=== PATIENT | female | born 1970 | race Caucasian/White ===

== ENCOUNTER 2017-09-25 23:14 | Inpatient (IN) | payer OTHER ==
[~2017-09-25] VITALS: Ht 152.4 cm; Wt 84.1 kg
[2017-09-25] MEDS ORDERED: MORPHINE SULFATE 2 MG/ML SYR IV STA (23:54)
[2017-09-26] VITALS (7 sets, daily range): BP systolic 93–120; BP diastolic 59–79
[2017-09-26] MEDS ORDERED: ONDANSETRON HCL 4 MG ORAL DISINTEGRATING TAB PO ONE
[2017-09-26] MEDS ORDERED: SODIUM CHLORIDE 0.9% 1000ML 1,000 ML IV SCH
[2017-09-26] MEDS ORDERED: SODIUM CHLORIDE 0.9% 1000ML 1,000 ML IV ONE
[2017-09-26] MEDS ORDERED: SODIUM CHLORIDE 0.9% 1000ML 1,000 ML ONE
[2017-09-26 00:13] LABS: BASOPHILS # (AUTO) 0.1 (0.0-0.1); BASOPHILS % 0.3 % (0.0-1.0); HEMATOCRIT 43.3 % (34.2-44.1); HEMOGLOBIN 14.3 g/dL (12.0-16.0); LYMPHOCYTES # (AUTO) 1.7 (1.0-3.2); LYMPHOCYTES % 7.3 % (18.0-39.1); MONOCYTES # (AUTO) 1.7 (0.2-0.8); MONOCYTES % 7.5 % (4.4-11.3); NEUTROPHILS # (AUTO) 19.2 (2.1-6.9); NEUTROPHILS % 84.3 % (38.7-80.0); PLATELET COUNT 278 x10e3/uL (140-360); RED BLOOD COUNT 4.76 x10e6/uL (3.6-5.1); RED CELL DISTRIBUTION WIDTH 13.2 % (11.7-14.4)
[2017-09-26 00:17] LABS: CLARITY,URINE CLEAR (CLEAR); COLOR,URINE YELLOW (YELLOW)
[2017-09-26 00:18] LABS: BILIRUBIN,URINE NEGATIVE (NEGATIVE); KETONES,URINE NEGATIVE (NEGATIVE); LEUKOCYTE ESTERASE ,URINE NEGATIVE (NEGATIVE); NITRITE,URINE NEGATIVE (NEGATIVE); PROTEIN,URINE DIPSTICK NEGATIVE (NEGATIVE); URINE UROBILINOGEN 0.2 mg/dL (0.2 - 1)
[2017-09-26 00:28] LABS: ALANINE AMINOTRANSFERASE 11 IU/L (0-55); ALBUMIN 3.6 g/dL (3.5-5.0); ALKALINE PHOSPHATASE 82 IU/L (40-150); AMYLASE 20 U/L (25-125); ANION GAP 13.5 mmol/L (8-16); BLOOD UREA NITROGEN 9 mg/dL (7-26); BUN/CREATININE RATIO 12 (6-25); CALCIUM 9.4 mg/dL (8.4-10.2); CARBON DIOXIDE 24 mmol/L (22-29); CHLORIDE 102 mmol/L (98-107); CREATINE KINASE 80 IU/L (29-168); CREATININE, SERUM 0.76 mg/dL (0.57-1.11); EST GLOMERULAR FILTRATION RATE > 60 ML/MIN (60-); GLUCOSE 156 mg/dL (74-118); LIPASE 18 U/L (8-78); POTASSIUM 4.5 mmol/L (3.5-5.1); SODIUM 135 mmol/L (136-145)
[2017-09-26 00:29] LABS: BACTERIA,URINE RARE /HPF; EPITHELIAL CELLS,URINE RARE /LPF; RBC,URINE 21-50 /HPF (0-5); WBC,URINE (MAN) 0-5 /HPF (0-5)
[2017-09-26] MEDS ORDERED: DIATRIZOATE MEGL/DIATRIZOA SOD 30 ML BTL PO ONE (00:29)
[2017-09-26] MEDS: LEVOFLOXACIN 500MG/D5W 100ML IV SCH (01:00)
[2017-09-26 01:12] LABS: LYMPHOCYTES % (MANUAL) 9 % (19-48); MONOCYTES % (MANUAL) 6 % (3.4-9.0); NEUTROPHILS % (MANUAL) 85 % (40-74); PLATELET ESTIMATE ADEQUATE; PLATELET MORPHOLOGY COMMENT NORMAL; RBC MORPHOLOGY COMMENT NORMAL
[2017-09-26] MEDS ORDERED: IOPAMIDOL 370 MG/ML 200 ML INFUS..BTL INJ ONE (01:55)
[2017-09-26] MEDS ORDERED: SODIUM CHLORIDE 0.9% 50ML 50 ML ONE (01:55)
--- NOTE | 2017-09-26 02:50 | Diagnostic Imaging Report ---
EXAM: CT Abdomen and Pelvis WITH contrast INDICATION: Left lower quadrant pain, vomiting COMPARISON: None. TECHNIQUE: Abdomen and pelvis were scanned utilizing a multidetector helical scanner from the lung base to the pubic symphysis after administration of IV contrast. Coronal and sagittal reformations were obtained. Routine protocol was performed. Scan was performed when during portal venous phase. IV CONTRAST: 100 mL of Isovue-370 ORAL CONTRAST: Gastrografin RADIATION DOSE: Total DLP: 550.24 mGy*cm Estimated effective dose: (DLP x 0.015 x size factor) mSv COMPLICATIONS: None FINDINGS: LINES and TUBES: None. LOWER THORAX: Unremarkable HEPATOBILIARY: No focal hepatic lesions. No biliary ductal dilation. GALLBLADDER: No radio-opaque stones or sludge. No wall thickening. SPLEEN: No splenomegaly. PANCREAS: No focal masses or ductal dilatation. ADRENALS: No adrenal nodules KIDNEYS/URETERS: Kidneys enhance symmetrically. No hydronephrosis. No cystic or solid mass lesions. No stones. GI TRACT: No abnormal distention, wall thickening, or evidence of bowel obstruction. There are diverticula within the colon with evidence of distal sigmoid colon diverticulitis. Partial appendectomy. There is evidence of prior segmental colectomy at the distal descending and sigmoid colon. PELVIC ORGANS/BLADDER: Within the left hemipelvis, there are 2 well-circumscribed fluid collections in the region of the left adnexum measuring 6.5 and 6.9 cm in maximum dimension abutting each other and abutting the sigmoid colon LYMPH NODES: No lymphadenopathy. VESSELS: Unremarkable. PERITONEUM / RETROPERITONEUM: No free air or fluid. BONES: Unremarkable. SOFT TISSUES: Left anterior lateral small bowel containing Spigelian hernia versus eventration on prior colostomy site IMPRESSION: 1. Findings in the left lower quadrant are suspicious for inflammatory changes related to contained perforated diverticulitis. No evidence of free air or free fluid. However, there is evidence of air and fluid containing in the left hemipelvis 2. 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 Randal Ohara M.D. on 09/26/2017 2:46 AM
[2017-09-26] MEDS ORDERED: METRONIDAZOLE 500MG/NS 100ML 100 ML IV STA (02:55)
[2017-09-26] MEDS ORDERED: LEVOFLOXACIN 500MG/D5W 100ML 100 ML IV STA (02:55)
[2017-09-26] MEDS ORDERED: MORPHINE SULFATE 2 MG/ML SYR IV STA (03:00)
[2017-09-26] MEDS ORDERED: LEVOFLOXACIN 500MG/D5W 100ML IV SCH (03:15)
[2017-09-26] MEDS ORDERED: ACETAMINOPHEN 1000 MG/100 ML IV PRN (03:15)
[2017-09-26] MEDS ORDERED: ONDANSETRON HCL INJ 2 MG/ML VIAL IV PRN (03:15)
[2017-09-26] MEDS: SODIUM CHLORIDE 0.9% 1000ML 1,000 ML IV SCH ×3 (03:24→20:00)
--- OUTSIDE RECORDS SUMMARY | 2017-09-26 03:32 | XMS REPORT ---
Author Author [facility] Address Unknown Phone Unavailable Care Team Providers Care Associate Theatre Professor Name Role Phone BAIRON LAWTON Unavailable Unavailable Problems This patient has no known problems. Allergies, Adverse Reactions, Alerts This patient has no known allergies or adverse reactions. Medications This patient has no known medications. Results Test Description Test Time Test Comments Text Results Atomic Results Result Comments CT ABDOMEN/PELVIS W [place] [address] Patient Name: JORDAN OLSEN MR #: [id number] : 1970 Age/Sex: 47/F Req #: [id number] Adm Physician: Ordered by: BAIRON LAWTON MD Report #: [id number] Location: ER Room/Bed: Procedure: [id number] CT/CT ABDOMEN/PELVIS W Exam Date: 09/26/17 Exam Time: 222 REPORT STATUS: Signed EXAM: CT Abdomen and Pelvis WITH contrast INDICATION: Left lower quadrant pain, vomiting COMPARISON: None. TECHNIQUE: Abdomen and pelvis were scanned utilizing a multidetector helical scanner from the lung base to the pubic symphysis after administration of IV contrast. Coronal and sagittal reformations were obtained. Routine protocol was performed. Scan was performed when during portal venous phase. IV CONTRAST: 100 mL of Isovue-370 ORAL CONTRAST: Gastrografin RADIATION DOSE: Total DLP: 550.24 mGy*cm Estimated effective dose: (DLP x 0.015 x size factor) mSv COMPLICATIONS: None FINDINGS: LINES and TUBES: None. LOWER THORAX: Unremarkable HEPATOBILIARY: No focal hepatic lesions. No biliary ductal dilation. GALLBLADDER: No radio-opaque stones or sludge. No wall thickening. SPLEEN: No splenomegaly. PANCREAS: No focal masses or ductal dilatation. ADRENALS: No adrenal nodules KIDNEYS/URETERS: Kidneys enhance symmetrically. No hydronephrosis. No cystic or solid mass lesions. No stones. GI TRACT: No abnormal distention, wall thickening, or evidence of bowel obstruction. There are diverticula within the colon with evidence of distal sigmoid colon diverticulitis. Partial appendectomy. There is evidence of prior segmental colectomy at the distal descending and sigmoid colon. PELVIC ORGANS/BLADDER : Within the left hemipelvis, there are 2 well-circumscribed fluid collections in the region of the left adnexum measuring 6.5 and 6.9 cm in maximum dimension abutting each other and abutting the sigmoid colon LYMPH NODES: No lymphadenopathy. VESSELS: Unremarkable. PERITONEUM / RETROPERITONEUM: No free air or fluid. BONES: Unremarkable. SOFT TISSUES: Left anterior lateral small bowel containing Spigelian hernia versus eventration on prior colostomy site IMPRESSION: 1. Findings in the left lower quadrant are suspicious for inflammatory changes related to contained perforated diverticulitis. No evidence of free air or free fluid. However, there is evidence of air and fluid containing in the left hemipelvis 2. 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 Randal Ohara M.D. on 09/26/2017 2:46 AM Dictated By: RANDAL VALE MD 5 Transcribed By: BRANDIN on 09/26/17245 COPY TO: BAIRON LAWTON MD
[2017-09-26] MEDS ORDERED: METRONIDAZOLE 500MG/NS 100ML 100 ML IV SCH (06:00)
[2017-09-26] MEDS: MORPHINE SULFATE 2 MG/ML SYR IV PRN ×2 (06:27→10:01)
[2017-09-26] MEDS: ONDANSETRON HCL 4 MG ORAL DISINTEGRATING TAB SL PRN ×2 (06:46→13:45)
[2017-09-26] MEDS: FAMOTIDINE 20 MG/2 ML VIAL IV SCH ×2 (09:00→17:37)
[2017-09-26] MEDS: METRONIDAZOLE 500MG/NS 100ML 100 ML IV SCH ×3 (09:00→21:00)
[2017-09-26] MEDS: HYDROMORPHONE 2MG/ML INJ IV PRN (13:43)
[2017-09-27] VITALS (7 sets, daily range): BP systolic 103–120; BP diastolic 57–84
[2017-09-27] MEDS: METRONIDAZOLE 500MG/NS 100ML 100 ML IV SCH ×4 (03:32→21:02)
[2017-09-27] MEDS: SODIUM CHLORIDE 0.9% 1000ML 1,000 ML IV SCH ×3 (03:37→18:35)
[2017-09-27 06:45] LABS: BASOPHILS # (AUTO) 0.1 (0.0-0.1); BASOPHILS % 0.2 % (0.0-1.0); EOSINOPHILS % 0.1 % (0.0-6.0); HEMATOCRIT 37.9 % (34.2-44.1); HEMOGLOBIN 12.1 g/dL (12.0-16.0); LYMPHOCYTES # (AUTO) 0.9 (1.0-3.2); LYMPHOCYTES % 3.8 % (18.0-39.1); MEAN CORPUSCULAR HEMOGLOBIN 30.3 pg (28-32); MEAN CORPUSCULAR HGB CONC 31.9 g/dL (31-35); MONOCYTES # (AUTO) 1.8 (0.2-0.8); NEUTROPHILS # (AUTO) 19.7 (2.1-6.9); NEUTROPHILS % 86.8 % (38.7-80.0); PLATELET COUNT 214 x10e3/uL (140-360); RED BLOOD COUNT 3.99 x10e6/uL (3.6-5.1); RED CELL DISTRIBUTION WIDTH 13.6 % (11.7-14.4)
[2017-09-27 07:13] LABS: ALANINE AMINOTRANSFERASE 7 IU/L (0-55); ALBUMIN 2.6 g/dL (3.5-5.0); ALBUMIN/GLOBULIN RATIO 0.8 (0.8-2.0); ALKALINE PHOSPHATASE 68 IU/L (40-150); BLOOD UREA NITROGEN 8 mg/dL (7-26); BUN/CREATININE RATIO 12 (6-25); CALCIUM 8.8 mg/dL (8.4-10.2); CARBON DIOXIDE 25 mmol/L (22-29); CHLORIDE 107 mmol/L (98-107); CREATININE, SERUM 0.68 mg/dL (0.57-1.11); EST GLOMERULAR FILTRATION RATE > 60 ML/MIN (60-); GLUCOSE 107 mg/dL (74-118); SODIUM 139 mmol/L (136-145)
[2017-09-27] MEDS: ONDANSETRON HCL 4 MG ORAL DISINTEGRATING TAB SL PRN (07:52)
[2017-09-27 07:55] LABS: BAND NEUTROPHILS % (MANUAL) 1 %; EOSINOPHILS % (MANUAL) 1 % (0-7); LYMPHOCYTES % (MANUAL) 3 % (19-48); MONOCYTES % (MANUAL) 7 % (3.4-9.0); NEUTROPHILS % (MANUAL) 88 % (40-74)
[2017-09-27 07:56] LABS: ANISOCYTOSIS SLIGHT; PLATELET ESTIMATE ADEQUATE; PLATELET MORPHOLOGY COMMENT NORMAL; RBC MORPHOLOGY COMMENT NORMAL
[2017-09-27] MEDS: FAMOTIDINE 20 MG/2 ML VIAL IV SCH ×2 (09:00→15:18)
[2017-09-27] MEDS: HYDROMORPHONE 2MG/ML INJ IV PRN ×2 (10:04→19:47)
[2017-09-27] MEDS ORDERED: ONDANSETRON HCL INJ 2 MG/ML VIAL IV PRN (15:00)
[2017-09-27] MEDS: PANTOPRAZOLE 40 MG 10ML VIAL IV SCH (17:06)
[2017-09-27] MEDS: LEVOFLOXACIN 500MG/D5W 100ML IV SCH (23:29)
[2017-09-28] VITALS (7 sets, daily range): BP systolic 104–134; BP diastolic 61–87
[2017-09-28] MEDS: PROMETHAZINE 25MG/ NS 50ML (IV) IV PRN ×3 (00:46→22:48)
[2017-09-28] MEDS: HYDROMORPHONE 2MG/ML INJ IV PRN ×3 (00:46→22:48)
[2017-09-28] MEDS: SODIUM CHLORIDE 0.9% 1000ML 1,000 ML IV SCH ×4 (03:03→20:39)
[2017-09-28] MEDS: METRONIDAZOLE 500MG/NS 100ML 100 ML IV SCH ×4 (03:03→20:39)
[2017-09-28] MEDS: PANTOPRAZOLE 40 MG 10ML VIAL IV SCH ×2 (11:02→18:00)
[2017-09-28] MEDS: ACETAMINOPHEN 325 MG TAB PO PRN (16:17)
[2017-09-29] VITALS (7 sets, daily range): BP systolic 115–122; BP diastolic 69–81
[2017-09-29] MEDS: LEVOFLOXACIN 500MG/D5W 100ML IV SCH (00:39)
[2017-09-29] MEDS: METRONIDAZOLE 500MG/NS 100ML 100 ML IV SCH ×4 (02:32→20:44)
[2017-09-29] MEDS: ONDANSETRON HCL 4 MG ORAL DISINTEGRATING TAB PO PRN ×2 (06:12→16:33)
--- NOTE | 2017-09-29 07:07 | Diagnostic Imaging Report ---
EXAMINATION: ABDOMEN ACUTE SERIES W/PA CXR INDICATION: Diverticulitis COMPARISON: CT of the abdomen and pelvis on 09/26/2017 FINDINGS: TUBES and LINES: None. LUNGS: Lungs are well inflated. Lungs are clear. There is no evidence of pneumonia or pulmonary edema. PLEURA: No pleural effusion or pneumothorax. HEART AND MEDIASTINUM: The cardiomediastinal silhouette is unremarkable. BONES AND SOFT TISSUES: No acute osseous lesion. Soft tissues are unremarkable. ABDOMEN: No free air under the diaphragm. Nonobstructive bowel gas pattern. No abnormal abdominal calcifications, mass effect or organomegaly. IMPRESSION: No acute thoracic abnormality. Nonobstructive bowel gas pattern. Signed by: Dr. Randal Ohara M.D. on 09/29/2017 7:03 AM
[2017-09-29 07:32] LABS: BASOPHILS # (AUTO) 0.1 (0.0-0.1); BASOPHILS % 0.2 % (0.0-1.0); EOSINOPHILS % 0.1 % (0.0-6.0); HEMATOCRIT 39.3 % (34.2-44.1); HEMOGLOBIN 12.9 g/dL (12.0-16.0); LYMPHOCYTES # (AUTO) 1.4 (1.0-3.2); LYMPHOCYTES % 6.6 % (18.0-39.1); MEAN CORPUSCULAR HEMOGLOBIN 30.4 pg (28-32); MEAN CORPUSCULAR HGB CONC 32.8 g/dL (31-35); MEAN CORPUSCULAR VOLUME 92.7 fL (81-99); MONOCYTES # (AUTO) 1.8 (0.2-0.8); MONOCYTES % 8.9 % (4.4-11.3); PLATELET COUNT 272 x10e3/uL (140-360); RED BLOOD COUNT 4.24 x10e6/uL (3.6-5.1); RED CELL DISTRIBUTION WIDTH 13.4 % (11.7-14.4)
[2017-09-29] MEDS: PROMETHAZINE 25MG/ NS 50ML (IV) IV PRN ×2 (07:48→17:43)
[2017-09-29] MEDS: HYDROMORPHONE 2MG/ML INJ IV PRN ×2 (07:48→17:41)
[2017-09-29 08:04] LABS: ANION GAP 16.1 mmol/L (8-16); BLOOD UREA NITROGEN 10 mg/dL (7-26); BUN/CREATININE RATIO 16 (6-25); CALCIUM 8.7 mg/dL (8.4-10.2); CARBON DIOXIDE 20 mmol/L (22-29); CHLORIDE 105 mmol/L (98-107); CREATININE, SERUM 0.61 mg/dL (0.57-1.11); EST GLOMERULAR FILTRATION RATE > 60 ML/MIN (60-); GLUCOSE 72 mg/dL (74-118); POTASSIUM 3.1 mmol/L (3.5-5.1); SODIUM 138 mmol/L (136-145)
[2017-09-29] MEDS: SODIUM CHLORIDE 0.9% 1000ML 1,000 ML IV SCH ×2 (09:48→11:20)
[2017-09-29] MEDS: PANTOPRAZOLE 40 MG 10ML VIAL IV SCH ×2 (09:56→17:41)
[2017-09-29 10:16] LABS: BAND NEUTROPHILS % (MANUAL) 1 %; LYMPHOCYTES % (MANUAL) 5 % (19-48); MONOCYTES % (MANUAL) 10 % (3.4-9.0); NEUTROPHILS % (MANUAL) 84 % (40-74)
[2017-09-29 10:17] LABS: PLATELET ESTIMATE ADEQUATE; PLATELET MORPHOLOGY COMMENT NORMAL; RBC MORPHOLOGY COMMENT NORMAL
[2017-09-29] MEDS ORDERED: POTASSIUM CHLORIDE 20MEQ/100ML 100 ML IV STA (11:20)
[2017-09-29] MEDS: ACETAMINOPHEN 325 MG TAB PO PRN (16:33)
[2017-09-30] MEDS: LEVOFLOXACIN 500MG/D5W 100ML IV SCH ×2 (00:11→23:10)
[2017-09-30 00:58] VITALS: BP 118/63
[2017-09-30] MEDS: ONDANSETRON HCL 4 MG ORAL DISINTEGRATING TAB PO PRN (02:18)
[2017-09-30] MEDS: ACETAMINOPHEN 325 MG TAB PO PRN ×2 (02:40→09:30)
[2017-09-30] MEDS: METRONIDAZOLE 500MG/NS 100ML 100 ML IV SCH ×4 (03:34→21:12)
[2017-09-30 05:37] VITALS: BP 113/67
[2017-09-30 06:46] LABS: BASOPHILS # (AUTO) 0.1 (0.0-0.1); BASOPHILS % 0.3 % (0.0-1.0); EOSINOPHILS % 0.2 % (0.0-6.0); HEMATOCRIT 38.6 % (34.2-44.1); HEMOGLOBIN 12.7 g/dL (12.0-16.0); LYMPHOCYTES # (AUTO) 1.5 (1.0-3.2); LYMPHOCYTES % 8.7 % (18.0-39.1); MEAN CORPUSCULAR HEMOGLOBIN 30.2 pg (28-32); MEAN CORPUSCULAR HGB CONC 32.9 g/dL (31-35); MEAN CORPUSCULAR VOLUME 91.9 fL (81-99); MONOCYTES # (AUTO) 1.5 (0.2-0.8); MONOCYTES % 8.8 % (4.4-11.3); NEUTROPHILS # (AUTO) 14.1 (2.1-6.9); NEUTROPHILS % 80.9 % (38.7-80.0); PLATELET COUNT 288 x10e3/uL (140-360); RED CELL DISTRIBUTION WIDTH 13.5 % (11.7-14.4)
[2017-09-30 07:08] LABS: ANION GAP 16.6 mmol/L (8-16); BLOOD UREA NITROGEN 7 mg/dL (7-26); BUN/CREATININE RATIO 11 (6-25); CALCIUM 8.3 mg/dL (8.4-10.2); CARBON DIOXIDE 20 mmol/L (22-29); CHLORIDE 105 mmol/L (98-107); CREATININE, SERUM 0.61 mg/dL (0.57-1.11); EST GLOMERULAR FILTRATION RATE > 60 ML/MIN (60-); GLUCOSE 62 mg/dL (74-118); POTASSIUM 3.6 mmol/L (3.5-5.1); SODIUM 138 mmol/L (136-145)
[2017-09-30 07:30] VITALS: BP 104/62
[2017-09-30 08:00] VITALS: BP 104/62
[2017-09-30 08:30] LABS: LYMPHOCYTES % (MANUAL) 8 % (19-48); MONOCYTES % (MANUAL) 12 % (3.4-9.0); MYELOCYTES % (MANUAL) 1 % (0-0); NEUTROPHILS % (MANUAL) 79 % (40-74)
[2017-09-30 08:31] LABS: ANISOCYTOSIS SLIGHT; PLATELET ESTIMATE ADEQUATE; PLATELET MORPHOLOGY COMMENT NORMAL; RBC MORPHOLOGY COMMENT NORMAL
[2017-09-30] MEDS: PROMETHAZINE 25MG/ NS 50ML (IV) IV PRN ×2 (09:30→17:00)
[2017-09-30] MEDS: PANTOPRAZOLE 40 MG 10ML VIAL IV SCH ×2 (09:36→17:00)
[2017-09-30 12:00] VITALS: BP 133/85
[2017-09-30] MEDS: SODIUM CHLORIDE 0.9% 1000ML 1,000 ML IV SCH ×2 (13:09→22:28)
[2017-09-30] MEDS: SIMETHICONE 80 MG CHEW PO SCH ×2 (14:54→21:12)
[2017-09-30 16:00] VITALS: BP 124/74
[2017-09-30] MEDS: FAMOTIDINE 20 MG TAB PO SCH (16:30)
[2017-09-30] MEDS: HYDROMORPHONE 2MG/ML INJ IV PRN (17:56)
[2017-10-01] VITALS (7 sets, daily range): BP systolic 121–146; BP diastolic 70–92
[2017-10-01] MEDS: PROMETHAZINE 25MG/ NS 50ML (IV) IV PRN (02:07)
[2017-10-01] MEDS: SODIUM CHLORIDE 0.9% 1000ML 1,000 ML IV SCH ×4 (02:29→20:21)
[2017-10-01] MEDS: HYDROMORPHONE 2MG/ML INJ IV PRN ×2 (02:40→15:51)
[2017-10-01] MEDS: METRONIDAZOLE 500MG/NS 100ML 100 ML IV SCH ×4 (03:44→20:21)
[2017-10-01 06:09] LABS: BASOPHILS # (AUTO) 0.1 (0.0-0.1); BASOPHILS % 0.6 % (0.0-1.0); EOSINOPHILS % 0.2 % (0.0-6.0); HEMATOCRIT 35.4 % (34.2-44.1); HEMOGLOBIN 11.8 g/dL (12.0-16.0); LYMPHOCYTES # (AUTO) 1.7 (1.0-3.2); LYMPHOCYTES % 9.1 % (18.0-39.1); MEAN CORPUSCULAR HEMOGLOBIN 30.3 pg (28-32); MEAN CORPUSCULAR HGB CONC 33.3 g/dL (31-35); MEAN CORPUSCULAR VOLUME 90.8 fL (81-99); MONOCYTES # (AUTO) 1.6 (0.2-0.8); MONOCYTES % 8.8 % (4.4-11.3); NEUTROPHILS # (AUTO) 14.4 (2.1-6.9); NEUTROPHILS % 78.9 % (38.7-80.0); PLATELET COUNT 291 x10e3/uL (140-360); RED CELL DISTRIBUTION WIDTH 13.6 % (11.7-14.4)
[2017-10-01 06:40] LABS: BLOOD UREA NITROGEN < 5 mg/dL (7-26); CALCIUM 7.9 mg/dL (8.4-10.2); CARBON DIOXIDE 19 mmol/L (22-29); CHLORIDE 105 mmol/L (98-107); CREATININE, SERUM 0.53 mg/dL (0.57-1.11); EST GLOMERULAR FILTRATION RATE > 60 ML/MIN (60-); GLUCOSE 88 mg/dL (74-118); SODIUM 137 mmol/L (136-145)
[2017-10-01 06:41] LABS: BUN/CREATININE RATIO 9 (6-25)
[2017-10-01] MEDS: FAMOTIDINE 20 MG TAB PO SCH ×2 (07:49→16:30)
[2017-10-01 07:53] LABS: EOSINOPHILS % (MANUAL) 1 % (0-7); LYMPHOCYTES % (MANUAL) 8 % (19-48); MONOCYTES % (MANUAL) 7 % (3.4-9.0); NEUTROPHILS % (MANUAL) 80 % (40-74)
[2017-10-01 07:55] LABS: ANISOCYTOSIS SLIGHT; RBC MORPHOLOGY COMMENT NORMAL; TEAR DROP CELLS FEW
[2017-10-01 07:56] LABS: PLATELET ESTIMATE ADEQUATE; PLATELET MORPHOLOGY COMMENT NORMAL
[2017-10-01] MEDS: PANTOPRAZOLE 40 MG 10ML VIAL IV SCH ×2 (09:29→17:00)
[2017-10-01] MEDS: SIMETHICONE 80 MG CHEW PO SCH ×3 (09:29→20:21)
[2017-10-01] MEDS ORDERED: FUROSEMIDE INJ 10 MG/ML 2 ML VIAL IV ONE (11:15)
[2017-10-01] MEDS ORDERED: DIATRIZOATE MEGL/DIATRIZOA SOD 30 ML BTL PO ONE (11:28)
[2017-10-01] MEDS ORDERED: POTASSIUM CHLORIDE 20MEQ/100ML 100 ML IV SCH (12:00)
[2017-10-01 12:11] LABS: CLARITY,URINE SL CLOUDY (CLEAR); COLOR,URINE YELLOW (YELLOW); KETONES,URINE 3+ (NEGATIVE); LEUKOCYTE ESTERASE ,URINE NEGATIVE (NEGATIVE); NITRITE,URINE NEGATIVE (NEGATIVE); PROTEIN,URINE DIPSTICK TRACE (NEGATIVE)
[2017-10-01 12:12] LABS: BACTERIA,URINE RARE /HPF; BILIRUBIN,URINE 2+ (NEGATIVE); EPITHELIAL CELLS,URINE FEW /LPF; URINE UROBILINOGEN 1 mg/dL (0.2 - 1)
[2017-10-01] MEDS: POTASSIUM CHLORIDE 20MEQ/100ML 100 ML IV SCH ×2 (14:00→17:00)
--- NOTE | 2017-10-01 19:05 | Diagnostic Imaging Report ---
PROCEDURE: CT ABDOMEN AND PELVIS WITH CONTRAST TECHNIQUE: The abdomen and pelvis were scanned utilizing a multidetector helical scanner from the diaphragm to the lesser trochanter after the IV administration of 100 cc of Isovue 370 and the oral administration of dilute Gastrografin. Coronal and sagittal multiplanar reformations were obtained. COMPARISON: [facility], CT, CT ABDOMEN/PELVIS W, 09/26/2017, 2:23. INDICATIONS: DIVERTICULITIS FOLLOW UP FINDINGS: LOWER THORAX: Right lower lobe subsegmental atelectasis (sagittal image 41). HEPATOBILIARY: Diffusely decreased attenuation of the hepatic parenchyma compared to the spleen, consistent with steatosis. Stable focal fatty infiltration adjacent to the falciform ligament. No focal lesions. Common bile duct in the upper limit of normal, measuring 6-7 mm. No intrahepatic biliary ductal dilation. Gallbladder is unremarkable. SPLEEN: No splenomegaly. PANCREAS: No focal masses or ductal dilatation. ADRENALS: No adrenal nodules. KIDNEYS/URETERS: Mild left hydronephrosis and mild proximal and mid left hydroureter. No right hydronephrosis. No stones or solid, enhancing masses. PELVIC ORGANS/BLADDER: Bladder is unremarkable. Uterus unremarkable. Interval increase in size of 7.7 x 7.4 x 5.4 multiloculated fluid collection in the left adnexa, which now shows prominent peripheral enhancement and multiple air foci and/or air-fluid level (sagittal image 81, series 2, image 70, and coronal image 52), previously measured 7.3 x 6.4 x 3.9 cm, when measured on the same axes. Interval development of 4.7 x 3.0 x 3.7 cm peripherally enhancing fluid collection with air-fluid level immediately superior to the uterine body/fundus in the right aspect of the anterior pelvis (series 2, image 69, sagittal, image 61 and coronal image 41), which appears to communicate with the above-described complex fluid collection (best visualized on coronal image 45). Slight interval increase in size of 8.4 x 4.1 x 8.2 well-circumscribed fluid collection in the anterior pelvis, contiguous with the above-described multiloculated, complex fluid collection (series 2, image 71, sagittal, image 82, and coronal image 33), which previously measured approximately 6.9 x 3.8 x 6.9 cm. This collection measures fluid density and does not show significant peripheral enhancement. PERITONEUM / RETROPERITONEUM: No free air or fluid. LYMPH NODES: No enlarged intra-abdominal, retroperitoneal, pelvic, or inguinal adenopathy. VESSELS: Celiac trunk, superior and inferior mesenteric, and bilateral renal arteries are patent. Portal, superior mesenteric, and splenic veins are patent. GI TRACT: Sigmoid diverticulosis. Persistent moderate to marked wall thickening and mild to moderate surrounding stranding in a approximately 11 cm segment of the sigmoid colon (for example series 2, image 65, and sagittal image 66), adjacent to the above-described multiloculated, complex fluid collection. Rest of the bowel shows no wall thickening, dilation, or obstruction. BONES AND SOFT TISSUES: No aggressive lytic lesion. Stable left anterior lateral small bowel containing abdominal wall hernia, without evidence of strangulation or incarceration. Mild to moderate soft tissue edema. IMPRESSION: 1. Interval worsening of complex, multiloculated fluid collection in the left pelvis/ adnexa, consistent with abscess. Developing of new abscess in the right pelvis superior to the uterus, which appears to communicate with the primary left pelvic abscess. These lesions are likely the sequela of complicated sigmoid diverticulitis. Left tubo-ovarian abscess is a secondary consideration, particularly since the normal left ovary is not identified. 2. Persistent moderate inflammatory changes in the sigmoid consistent with diverticulitis. 3. Slight interval increase in size of 8.4 cm fluid collection in the anterior pelvis. The, which measures fluid density and no peripheral enhancement. This may represent a ovarian follicular cyst or developing abscess. 4. Interval development of mild left hydronephrosis and mild proximal and mid left hydroureter secondary to extrinsic compression from above-described fluid collections. 5. Diffuse hepatic steatosis. Alexey Danielson M.D. Dictated by: Alexey Danielson M.D. on 10/01/2017 at 19:07 Electronically approved by: Alexey Danielson M.D. on 10/01/2017 at 19:07
[2017-10-01] MEDS ORDERED: IOPAMIDOL 370 MG/ML 200 ML INFUS..BTL INJ ONE (20:35)
[2017-10-01] MEDS ORDERED: SODIUM CHLORIDE 0.9% 50ML 50 ML ONE (20:35)
[2017-10-01] MEDS: LEVOFLOXACIN 500MG/D5W 100ML IV SCH (22:42)
[2017-10-02] VITALS (7 sets, daily range): BP systolic 125–143; BP diastolic 64–78
[2017-10-02] MEDS: PROMETHAZINE 25MG/ NS 50ML (IV) IV PRN (00:51)
[2017-10-02] MEDS: ACETAMINOPHEN 325 MG TAB PO PRN (00:52)
[2017-10-02] MEDS: METRONIDAZOLE 500MG/NS 100ML 100 ML IV SCH ×4 (03:46→20:07)
[2017-10-02] MEDS: SODIUM CHLORIDE 0.9% 1000ML 1,000 ML IV SCH ×3 (05:09→18:29)
[2017-10-02 08:26] LABS: BASOPHILS # (AUTO) 0.1 (0.0-0.1); BASOPHILS % 0.6 % (0.0-1.0); EOSINOPHILS # (AUTO) 0.1 (0.0-0.4); EOSINOPHILS % 0.3 % (0.0-6.0); HEMATOCRIT 37.1 % (34.2-44.1); HEMOGLOBIN 12.4 g/dL (12.0-16.0); LYMPHOCYTES # (AUTO) 2.6 (1.0-3.2); LYMPHOCYTES % 12.8 % (18.0-39.1); MEAN CORPUSCULAR HGB CONC 33.4 g/dL (31-35); MEAN CORPUSCULAR VOLUME 89.8 fL (81-99); MONOCYTES # (AUTO) 2.4 (0.2-0.8); MONOCYTES % 11.6 % (4.4-11.3); NEUTROPHILS # (AUTO) 14.4 (2.1-6.9); NEUTROPHILS % 69.9 % (38.7-80.0); PLATELET COUNT 326 x10e3/uL (140-360); RED BLOOD COUNT 4.13 x10e6/uL (3.6-5.1); RED CELL DISTRIBUTION WIDTH 13.6 % (11.7-14.4)
[2017-10-02 08:36] LABS: BLOOD UREA NITROGEN < 5 mg/dL (7-26); CALCIUM 8.3 mg/dL (8.4-10.2); CARBON DIOXIDE 20 mmol/L (22-29); CHLORIDE 103 mmol/L (98-107); CREATININE, SERUM 0.58 mg/dL (0.57-1.11); EST GLOMERULAR FILTRATION RATE > 60 ML/MIN (60-); GLUCOSE 79 mg/dL (74-118); SODIUM 137 mmol/L (136-145)
[2017-10-02 08:37] LABS: BUN/CREATININE RATIO 9 (6-25)
[2017-10-02] MEDS: SIMETHICONE 80 MG CHEW PO SCH ×3 (09:00→20:13)
[2017-10-02] MEDS: PANTOPRAZOLE 40 MG 10ML VIAL IV SCH ×2 (09:00→17:23)
[2017-10-02] MEDS: FAMOTIDINE 20 MG TAB PO SCH ×2 (09:00→17:23)
[2017-10-02] MEDS ORDERED: POTASSIUM CHLORIDE 20MEQ/100ML 200 ML IV ONE (10:00)
[2017-10-02] MEDS ORDERED: FUROSEMIDE INJ 10 MG/ML 2 ML VIAL IV ONE (10:00)
[2017-10-02 10:18] LABS: LYMPHOCYTES % (MANUAL) 10 % (19-48); MONOCYTES % (MANUAL) 6 % (3.4-9.0); NEUTROPHILS % (MANUAL) 80 % (40-74)
[2017-10-02 10:19] LABS: PLATELET ESTIMATE ADEQUATE; PLATELET MORPHOLOGY COMMENT FEW LARGE; RBC MORPHOLOGY COMMENT NORMAL
[2017-10-02] MEDS: ONDANSETRON HCL 4 MG ORAL DISINTEGRATING TAB PO PRN ×2 (11:02→17:23)
[2017-10-02] MEDS: HYDROMORPHONE 2MG/ML INJ IV PRN ×2 (11:24→17:23)
[2017-10-02] MEDS: MAGNESIUM HYDROXIDE 30 ML UDC PO SCH (20:11)
[2017-10-02] MEDS: LEVOFLOXACIN 500MG/D5W 100ML IV SCH (23:55)
[2017-10-03] VITALS: BP 133/67
[2017-10-03] MEDS: METRONIDAZOLE 500MG/NS 100ML 100 ML IV SCH ×3 (02:51→18:23)
[2017-10-03 04:00] VITALS: BP_SYST 124; BP_SYST 185; BP_DIAS 65; BP_DIAS 88
[2017-10-03] MEDS: ACETAMINOPHEN 325 MG TAB PO PRN ×4 (07:50→20:52)
[2017-10-03] MEDS: FAMOTIDINE 20 MG TAB PO SCH ×2 (07:50→16:51)
[2017-10-03 08:00] VITALS: BP 146/85
[2017-10-03] MEDS: PANTOPRAZOLE 40 MG 10ML VIAL IV SCH ×2 (09:39→16:51)
[2017-10-03] MEDS: SIMETHICONE 80 MG CHEW PO SCH ×3 (09:39→21:58)
[2017-10-03] MEDS ORDERED: POTASSIUM CHLORIDE 20 MEQ TAB CR PO NR ×2 (14:15→18:00)
[2017-10-03] MEDS: POTASSIUM CHLORIDE 20 MEQ TAB CR PO NR ×2 (18:23→21:40)
[2017-10-03] MEDS: ERYTHROMYCIN 500 MG TAB PO SCH ×3 (19:29→23:18)
[2017-10-03] MEDS: NEOMYCIN SULFATE 500 MG TAB PO SCH ×3 (19:30→23:18)
[2017-10-03] MEDS: ONDANSETRON HCL 4 MG ORAL DISINTEGRATING TAB PO PRN (20:17)
[2017-10-03 20:35] VITALS: BP 122/89
[2017-10-03] MEDS ORDERED: LEVOFLOXACIN 500MG/D5W 100ML 100 ML IV SCH (21:00)
[2017-10-03] MEDS: MAGNESIUM HYDROXIDE 30 ML UDC PO SCH (21:59)
[2017-10-04] VITALS (20 sets, daily range): BP systolic 78–128; BP diastolic 58–88
[2017-10-04] MEDS: METRONIDAZOLE 500MG/NS 100ML 100 ML IV SCH ×4 (00:43→18:00)
[2017-10-04] MEDS: SODIUM CHLORIDE 0.9% 1000ML 1,000 ML IV SCH (03:11)
[2017-10-04] MEDS: ONDANSETRON HCL 4 MG ORAL DISINTEGRATING TAB PO PRN ×2 (03:11→07:48)
[2017-10-04 06:34] LABS: BASOPHILS % 0.1 % (0.0-1.0); EOSINOPHILS % 0.1 % (0.0-6.0); HEMATOCRIT 37.9 % (34.2-44.1); HEMOGLOBIN 12.8 g/dL (12.0-16.0); LYMPHOCYTES % 10.8 % (18.0-39.1); MEAN CORPUSCULAR HEMOGLOBIN 30.2 pg (28-32); MEAN CORPUSCULAR HGB CONC 33.8 g/dL (31-35); MEAN CORPUSCULAR VOLUME 89.4 fL (81-99); MONOCYTES # (AUTO) 2.1 (0.2-0.8); MONOCYTES % 11.1 % (4.4-11.3); NEUTROPHILS # (AUTO) 12.9 (2.1-6.9); NEUTROPHILS % 69.7 % (38.7-80.0); PLATELET COUNT 348 x10e3/uL (140-360); RED BLOOD COUNT 4.24 x10e6/uL (3.6-5.1); RED CELL DISTRIBUTION WIDTH 14.1 % (11.7-14.4)
[2017-10-04 06:55] LABS: ALBUMIN 2.3 g/dL (3.5-5.0); ALBUMIN/GLOBULIN RATIO 0.6 (0.8-2.0); ALKALINE PHOSPHATASE 54 IU/L (40-150); ANION GAP 15.1 mmol/L (8-16); BLOOD UREA NITROGEN < 5 mg/dL (7-26); CALCIUM 8.8 mg/dL (8.4-10.2); CARBON DIOXIDE 27 mmol/L (22-29); CHLORIDE 100 mmol/L (98-107); CREATININE, SERUM 0.61 mg/dL (0.57-1.11); EST GLOMERULAR FILTRATION RATE > 60 ML/MIN (60-); GLUCOSE 98 mg/dL (74-118); POTASSIUM 4.1 mmol/L (3.5-5.1); SODIUM 138 mmol/L (136-145)
[2017-10-04 07:00] LABS: ALANINE AMINOTRANSFERASE < 6 IU/L (0-55); BUN/CREATININE RATIO 8 (6-25)
[2017-10-04] MEDS: FAMOTIDINE 20 MG TAB PO SCH ×2 (07:30→16:30)
[2017-10-04] MEDS: PANTOPRAZOLE 40 MG 10ML VIAL IV SCH ×2 (07:48→22:45)
[2017-10-04] MEDS: SIMETHICONE 80 MG CHEW PO SCH ×2 (07:48→15:00)
[2017-10-04 08:02] LABS: LYMPHOCYTES % (MANUAL) 12 % (19-48); METAMYELOCYTES % (MANUAL) 1 % (0-0); MONOCYTES % (MANUAL) 9 % (3.4-9.0); MYELOCYTES % (MANUAL) 2 % (0-0); NEUTROPHILS % (MANUAL) 76 % (40-74)
[2017-10-04 08:03] LABS: ANISOCYTOSIS SLIGHT; PLATELET ESTIMATE ADEQUATE; PLATELET MORPHOLOGY COMMENT NORMAL; RBC MORPHOLOGY COMMENT NORMAL
[2017-10-04] MEDS ORDERED: SEVOFLURANE INHAL SOLN 250 ML PEN BTL ONE (18:35)
[2017-10-04] MEDS ORDERED: LIDOCAINE HCL 2% LOCAL INJ 5 ML SDV VIAL INJ ONE (18:35)
[2017-10-04] MEDS ORDERED: DEXAMETHASONE SOD PHOS INJ 4 MG/ML VIAL ONE (18:35)
[2017-10-04] MEDS ORDERED: ONDANSETRON HCL INJ 2 MG/ML VIAL ONE (18:35)
[2017-10-04] MEDS ORDERED: KETOROLAC TROMETHAMINE 30 MG/ML VIAL ONE (18:35)
[2017-10-04] MEDS ORDERED: PROPOFOL IV EMULSION 10 MG/ML 20 ML VIAL ONE (18:35)
[2017-10-04] MEDS ORDERED: ROCURONIUM BROMIDE 10 MG/ML 5ML VIAL ONE (18:35)
[2017-10-04] MEDS ORDERED: ACETAMINOPHEN 1000 MG/100 ML IV ONE (18:35)
[2017-10-04] MEDS ORDERED: FENTANYL CITRATE/PF 100MCG/2 ML INJ ONE ×2 (18:39→19:08)
[2017-10-04] MEDS ORDERED: MIDAZOLAM HCL 2 MG/2 ML VIAL ONE (18:39)
[2017-10-04] MEDS: DEXTROSE 5%/LACTATED RINGERS 1,000 ML IV SCH (19:12)
[2017-10-04] MEDS ORDERED: PROMETHAZINE HCL (IM) 25 MG/ML VIAL IV PRN (19:15)
[2017-10-04] MEDS ORDERED: NALOXONE HCL INJ 0.4 MG/ML AMP IV PRN (19:15)
[2017-10-04] MEDS: SODIUM CHLORIDE 0.9% 250ML IRRIG IR SCH ×2 (19:15→22:45)
[2017-10-04] MEDS ORDERED: PROMETHAZINE 12.5MG/ NACL 0.9% 50 ML IV PRN (19:30)
[2017-10-04] MEDS ORDERED: HYDROMORPHONE 0.2MG/ML-SOD CHL 30ML PCA SYRINGE IV ONE (19:54)
[2017-10-04] MEDS: ACETAMINOPHEN 1000 MG/100 ML IV PRN (21:00)
--- NOTE | 2017-10-04 21:51 | Operative Report ---
DATE OF PROCEDURE: October 04, 2017 PREOPERATIVE DIAGNOSES: 1. Acute perforated diverticulitis with multiloculated pelvic abscesses. 2. Left ovarian cyst. POSTOPERATIVE DIAGNOSES: 1. Acute perforated diverticulitis with multiloculated pelvic abscesses. 2. Left ovarian cyst. 3. Extensive intra-abdominal adhesions. OPERATIONS PERFORMED: 1. Exploratory laparotomy. 2. Extensive lysis of intra-abdominal adhesions. 3. Left colectomy with Helen pouch and end colostomy. 4. Left salpingo-oophorectomy. 5. Drainage of multiple pelvic abscesses. ASSISTANTS: Dr. Venkatesh Billy and MANJIT Landa. ANESTHESIA: General. COMPLICATIONS: None. ESTIMATED BLOOD LOSS: 400 mL. DESCRIPTION OF PROCEDURE: With the patient lying in bed in the supine position under good general endotracheal anesthesia, the abdomen was prepped with Betadine solution and draped in the usual manner. A midline incision was made in the lower abdomen. It was carried down through the subcutaneous tissue and through the midline fascia. There was a lot of scarring from the patient's previous surgeries. The peritoneum was then slowly and carefully opened and the abdomen was entered. Upon entering the abdominal cavity, the abdomen was totally plastered with adhesions from the patient's previous surgeries, and it took an extensive amount of time probably an hour to dissect all of the adhesions of the small bowel so that we could get access as to what was going of the intra-abdominal cavity. Once this was done, we were then able to see that there was a large mass in the pelvis. There was a large left ovarian cystic mass as well, and all of these structures were totally plastered together with the left ovary being totally plastered to the lower sigmoid colon. The uterus was totally fused also to the anterior sigmoid colon and also to several loops of small bowel on the lower abdomen. The right adnexa appeared to be normal. We at this point managed then to mobilize the left colon off of the lateral gutter, and the left ureter was identified and preserved. Once this was done, we were able to develop a plane, and the pedicle of the left ovary was identified, doubly ligated with #0 silk and divided. The ovary which was totally plastered to the uterus was then from the uterus with the cautery, and bleeding points in the left uterine horn were controlled with suture ligatures of #0 Vicryl. We were then able to separate the ovarian mass from the uterus and were then able to swing it medially. At this point, we went ahead then and develop the posterior plane of the ovarian mass away from the sigmoid colon where we knew there was an abscess and immediately an abscess was then entered, which was in the mesentery of the lower sigmoid colon. Cultures were taken and this was all aspirated. A second abscess was then also found on the right side of the pelvis once all of the small bowel was . Once this was done, we were then able to clearly visualize the ureter on the left side, and the ovarian mass was totally from the surrounding structures and sent for pathological examination. Once this was done, the pelvis was then irrigated and hemostasis was ascertained. At this point, it appeared that the patient had had a previous stapled anastomosis of what seemed to be the descending colon to the mid to proximal sigmoid colon. Distal to the anastomosis in the remaining sigmoid colon, there was this sausage-like mass representing a very severe case of diverticulitis, which was totally plastered to the uterus and it extended all the way up into the upper rectum. We decided at this point that if we were to remove this entire mass, it may make it virtually impossible in the future to find the distal end to be able to close the colostomy and since all of the abscesses and stuff had been properly drained, we decided simply to resect proximal to the inflamed tissue and bring out a proximal colostomy resecting the old anastomosis and doing a colostomy at the level of the descending colon in the left upper quadrant. 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 The proximal colon proximal to the anastomosis was then divided with an application of LEANDRO 75 stapler, and using the Enseal device the mesentery of the colon was slowly and carefully divided distally. The anastomosis was then identified and distal to the anastomosis the colon was then divided with another application of the 75 LEANDRO stapler an area where the colon was nice and pliable, and anastomosis and specimen were sent for pathological examination. Again, we decided against removal of the inflammatory mass in the pelvis as we thought it would be counterproductive at this point and it would make it much harder later to close the patient's colostomy. When the patient does come back for surgery, she will absolutely have to have a hysterectomy as the uterus is totally fused to the lower sigmoid colon. At this point, the abdomen was then copiously irrigated with many liters of saline solution and perfect hemostasis was ascertained. All of the excess fluid was aspirated. A cruciate incision was made in the left upper quadrant of the rectus sheath to bring out the proximal colon. The proximal colon was brought out without any difficulty at the level of the proximal descending colon. Once this was done, a 10 flat Galindo-Lund drain was left in the pelvis at the site of the old abscess and brought out through a separate stab wound incision and the abdomen was then closed in layers. The peritoneum was closed with a running suture of #1 Vicryl. The midline fascia was closed with a running suture of #1 PDS. A 1/4-inch Haworth drain was left in the subcutaneous tissue, and the skin was closed with interrupted vertical mattress sutures of 2-0 nylon and tracee. The colostomy in the left upper quadrant was then matured using interrupted sutures of 3-0 Vicryl. Dressings and an appliance were placed. The sponge, lap, and needle count was correct. The patient tolerated the procedure well and returned to the recovery room in stable condition. Job#: [id number]
[2017-10-04] MEDS ORDERED: MEROPENEM 1GM 100 ML IV SCH (22:00)
[2017-10-04] MEDS: MEROPENEM 1 GM VIAL IV SCH (22:45)
[2017-10-05] VITALS (48 sets, daily range): BP systolic 73–151; BP diastolic 55–88
[2017-10-05] MEDS: HYDROMORPHONE 0.2MG/ML-SOD CHL 30ML PCA SYRINGE IV PRN (03:00)
[2017-10-05] MEDS: SODIUM CHLORIDE 0.9% 250ML IRRIG IR SCH ×6 (03:11→23:30)
[2017-10-05] MEDS: DEXTROSE 5%/LACTATED RINGERS 1,000 ML IV SCH ×3 (03:32→15:07)
[2017-10-05] MEDS: MEROPENEM 1 GM VIAL IV SCH ×3 (05:15→21:05)
[2017-10-05] MEDS: METRONIDAZOLE 500MG/NS 100ML 100 ML IV SCH ×5 (05:15→23:30)
[2017-10-05 06:08] LABS: HEMATOCRIT 30.8 % (34.2-44.1); HEMOGLOBIN 10.1 g/dL (12.0-16.0); LYMPHOCYTES # (AUTO) 1.8 (1.0-3.2); LYMPHOCYTES % 3.2 % (18.0-39.1); MEAN CORPUSCULAR HGB CONC 32.8 g/dL (31-35); MEAN CORPUSCULAR VOLUME 91.4 fL (81-99); MONOCYTES # (AUTO) 3.1 (0.2-0.8); MONOCYTES % 5.5 % (4.4-11.3); NEUTROPHILS # (AUTO) 48.2 (2.1-6.9); NEUTROPHILS % 87.5 % (38.7-80.0); PLATELET COUNT 356 x10e3/uL (140-360); RED BLOOD COUNT 3.37 x10e6/uL (3.6-5.1); RED CELL DISTRIBUTION WIDTH 14.7 % (11.7-14.4)
[2017-10-05 06:24] LABS: ANION GAP 16.1 mmol/L (8-16); BLOOD UREA NITROGEN 6 mg/dL (7-26); BUN/CREATININE RATIO 9 (6-25); CALCIUM 8.2 mg/dL (8.4-10.2); CARBON DIOXIDE 23 mmol/L (22-29); CHLORIDE 100 mmol/L (98-107); CREATININE, SERUM 0.69 mg/dL (0.57-1.11); EST GLOMERULAR FILTRATION RATE > 60 ML/MIN (60-); GLUCOSE 160 mg/dL (74-118); POTASSIUM 4.1 mmol/L (3.5-5.1); SODIUM 135 mmol/L (136-145)
[2017-10-05] MEDS ORDERED: VANCOMYCIN 1GM/NS 250 ML 250 ML IV ONE (07:00)
[2017-10-05] MEDS ORDERED: SODIUM CHLORIDE 0.9% 1000ML 1,000 ML IV PRN (07:00)
[2017-10-05] MEDS ORDERED: SODIUM CHLORIDE 0.9% 1000ML 1,000 ML ONE (07:01)
[2017-10-05 08:14] LABS: CLARITY,URINE HAZY (CLEAR); COLOR,URINE YELLOW (YELLOW); LEUKOCYTE ESTERASE ,URINE NEGATIVE (NEGATIVE); NITRITE,URINE NEGATIVE (NEGATIVE); PROTEIN,URINE DIPSTICK 1+ (NEGATIVE)
[2017-10-05 08:15] LABS: BACTERIA,URINE FEW /HPF; BILIRUBIN,URINE 2+ (NEGATIVE); EPITHELIAL CELLS,URINE FEW /LPF; KETONES,URINE 2+ (NEGATIVE); MUCUS,URINE MODERATE (RARE); RBC,URINE >50 /HPF (0-5); URINE UROBILINOGEN 0.2 mg/dL (0.2 - 1)
--- NOTE | 2017-10-05 08:39 | Diagnostic Imaging Report ---
EXAMINATION: CHEST SINGLE (PORTABLE) INDICATION: \S\Post surgery \S\Y COMPARISON: Chest radiograph 09/29/2017 FINDINGS: AP view TUBES and LINES: Interval placement of NG tube tip overlying the gastric body and side-port projecting the expected GE junction. LUNGS: Lungs are well inflated. Linear opacity in the right upper lobe with mild superior elevation of the adjacent fissure suggesting atelectasis. There is no evidence of pneumonia or pulmonary edema. PLEURA: No pleural effusion or pneumothorax. HEART AND MEDIASTINUM: The cardiomediastinal silhouette is unremarkable. BONES AND SOFT TISSUES: No acute osseous lesion. Soft tissues are unremarkable. UPPER ABDOMEN: No free air under the diaphragm. IMPRESSION: No acute thoracic abnormality. Nasogastric tube side hole overlies the gastroesophageal junction. Consider advancing. Signed by: DR. Juan Luis Faith MD on 10/05/2017 8:36 AM
[2017-10-05 09:18] LABS: BAND NEUTROPHILS % (MANUAL) 11 %; LYMPHOCYTES % (MANUAL) 4 % (19-48); METAMYELOCYTES % (MANUAL) 1 % (0-0); MONOCYTES % (MANUAL) 1 % (3.4-9.0); MYELOCYTES % (MANUAL) 1 % (0-0); NEUTROPHILS % (MANUAL) 82 % (40-74); PLATELET ESTIMATE ADEQUATE; PLATELET MORPHOLOGY COMMENT NORMAL; RBC MORPHOLOGY COMMENT NORMAL
[2017-10-05] MEDS: ACETAMINOPHEN 1000 MG/100 ML IV PRN ×2 (11:55→19:45)
[2017-10-05] MEDS: PANTOPRAZOLE 40 MG 10ML VIAL IV SCH (20:45)
--- NOTE | 2017-10-05 21:17 | Diagnostic Imaging Report ---
EXAM: ABDOMEN-1VIEW (KUB), supine INDICATION: NG tube advanced COMPARISON: September 29, 2017 FINDINGS: LINES/TUBES: Tip of the nasal/orogastric tube is in expected location of the fundus of the stomach. Surgical drain projects over the left pelvis. BOWEL PATTERN: No evidence for obstruction. SOFT TISSUES: Rounded opacity left mid abdomen could represent an ostomy site. Midline surgical tracee. LUNG BASES: No consolidations. BONES: No acute findings. IMPRESSION: Tip of nasogastric tube in expected location of the fundus of the stomach. Signed by: Dr. Carolina Mohan M.D. on 10/05/2017 9:13 PM
[2017-10-06] VITALS (22 sets, daily range): BP systolic 94–118; BP diastolic 57–80
[2017-10-06] MEDS: DEXTROSE 5%/LACTATED RINGERS 1,000 ML IV SCH ×2 (01:15→11:45)
[2017-10-06] MEDS: HYDROMORPHONE 0.2MG/ML-SOD CHL 30ML PCA SYRINGE IV PRN (01:45)
[2017-10-06] MEDS: SODIUM CHLORIDE 0.9% 250ML IRRIG IR SCH ×6 (03:30→23:15)
[2017-10-06] MEDS: METRONIDAZOLE 500MG/NS 100ML 100 ML IV SCH ×3 (05:10→17:33)
[2017-10-06] MEDS: MEROPENEM 1 GM VIAL IV SCH ×3 (05:10→22:13)
[2017-10-06 08:12] LABS: BASOPHILS # (AUTO) 0.1 (0.0-0.1); BASOPHILS % 0.3 % (0.0-1.0); EOSINOPHILS # (AUTO) 0.1 (0.0-0.4); EOSINOPHILS % 0.2 % (0.0-6.0); HEMATOCRIT 28.2 % (34.2-44.1); HEMOGLOBIN 9.1 g/dL (12.0-16.0); LYMPHOCYTES # (AUTO) 2.4 (1.0-3.2); LYMPHOCYTES % 8.1 % (18.0-39.1); MEAN CORPUSCULAR HEMOGLOBIN 29.8 pg (28-32); MEAN CORPUSCULAR HGB CONC 32.3 g/dL (31-35); MEAN CORPUSCULAR VOLUME 92.5 fL (81-99); MONOCYTES # (AUTO) 1.7 (0.2-0.8); MONOCYTES % 5.9 % (4.4-11.3); NEUTROPHILS # (AUTO) 23.3 (2.1-6.9); NEUTROPHILS % 79.9 % (38.7-80.0); PLATELET COUNT 315 x10e3/uL (140-360); RED BLOOD COUNT 3.05 x10e6/uL (3.6-5.1); RED CELL DISTRIBUTION WIDTH 14.4 % (11.7-14.4)
[2017-10-06 08:21] LABS: ALANINE AMINOTRANSFERASE 8 IU/L (0-55); ALBUMIN 1.7 g/dL (3.5-5.0); ALBUMIN/GLOBULIN RATIO 0.5 (0.8-2.0); ALKALINE PHOSPHATASE 42 IU/L (40-150); ANION GAP 9.6 mmol/L (8-16); BLOOD UREA NITROGEN 5 mg/dL (7-26); BUN/CREATININE RATIO 9 (6-25); CARBON DIOXIDE 31 mmol/L (22-29); CHLORIDE 103 mmol/L (98-107); CREATININE, SERUM 0.54 mg/dL (0.57-1.11); EST GLOMERULAR FILTRATION RATE > 60 ML/MIN (60-); GLUCOSE 130 mg/dL (74-118); POTASSIUM 3.6 mmol/L (3.5-5.1); SODIUM 140 mmol/L (136-145)
[2017-10-06] MEDS ORDERED: FUROSEMIDE INJ 10 MG/ML 2 ML VIAL ONE (10:39)
[2017-10-06] MEDS ORDERED: HYDROMORPHONE 0.2MG/ML-SOD CHL 30ML PCA SYRINGE IV PRN (11:00)
[2017-10-06 11:17] LABS: BAND NEUTROPHILS % (MANUAL) 2 %; LYMPHOCYTES % (MANUAL) 9 % (19-48); MONOCYTES % (MANUAL) 7 % (3.4-9.0); MYELOCYTES % (MANUAL) 2 % (0-0); NEUTROPHILS % (MANUAL) 80 % (40-74); PLATELET ESTIMATE ADEQUATE; PLATELET MORPHOLOGY COMMENT NORMAL; RBC MORPHOLOGY COMMENT NORMAL
[2017-10-06] MEDS ORDERED: FUROSEMIDE INJ 10 MG/ML 2 ML VIAL IV ONE (11:30)
[2017-10-06] MEDS: VANCOMYCIN 1GM/NS 250 ML 250 ML IV SCH (12:45)
[2017-10-06] MEDS: PANTOPRAZOLE 40 MG 10ML VIAL IV SCH (20:18)
[2017-10-07] VITALS (22 sets, daily range): BP systolic 106–131; BP diastolic 61–91
[2017-10-07] MEDS: VANCOMYCIN 1GM/NS 250 ML 250 ML IV SCH ×2 (00:15→13:00)
[2017-10-07] MEDS: DEXTROSE 5%/LACTATED RINGERS 1,000 ML IV SCH ×3 (02:58→16:26)
[2017-10-07] MEDS: SODIUM CHLORIDE 0.9% 250ML IRRIG IR SCH ×3 (02:58→11:15)
[2017-10-07] MEDS: ACETAMINOPHEN 1000 MG/100 ML IV PRN ×3 (03:09→21:30)
[2017-10-07] MEDS: MEROPENEM 1 GM VIAL IV SCH ×3 (05:31→22:00)
[2017-10-07] MEDS: METRONIDAZOLE 500MG/NS 100ML 100 ML IV SCH ×5 (05:31→23:35)
[2017-10-07 06:15] LABS: BASOPHILS # (AUTO) 0.1 (0.0-0.1); BASOPHILS % 0.3 % (0.0-1.0); EOSINOPHILS # (AUTO) 0.1 (0.0-0.4); EOSINOPHILS % 0.6 % (0.0-6.0); HEMATOCRIT 26.4 % (34.2-44.1); HEMOGLOBIN 8.6 g/dL (12.0-16.0); LYMPHOCYTES # (AUTO) 2.8 (1.0-3.2); LYMPHOCYTES % 12.8 % (18.0-39.1); MEAN CORPUSCULAR HEMOGLOBIN 29.9 pg (28-32); MEAN CORPUSCULAR HGB CONC 32.6 g/dL (31-35); MEAN CORPUSCULAR VOLUME 91.7 fL (81-99); MONOCYTES # (AUTO) 1.7 (0.2-0.8); MONOCYTES % 7.8 % (4.4-11.3); NEUTROPHILS # (AUTO) 15.6 (2.1-6.9); NEUTROPHILS % 70.8 % (38.7-80.0); PLATELET COUNT 334 x10e3/uL (140-360); RED BLOOD COUNT 2.88 x10e6/uL (3.6-5.1); RED CELL DISTRIBUTION WIDTH 14.9 % (11.7-14.4)
[2017-10-07 06:33] LABS: ANION GAP 8.6 mmol/L (8-16); BLOOD UREA NITROGEN 5 mg/dL (7-26); BUN/CREATININE RATIO 10 (6-25); CALCIUM 7.9 mg/dL (8.4-10.2); CARBON DIOXIDE 37 mmol/L (22-29); CHLORIDE 100 mmol/L (98-107); CREATININE, SERUM 0.52 mg/dL (0.57-1.11); EST GLOMERULAR FILTRATION RATE > 60 ML/MIN (60-); GLUCOSE 123 mg/dL (74-118); POTASSIUM 3.6 mmol/L (3.5-5.1); SODIUM 142 mmol/L (136-145)
[2017-10-07 07:42] LABS: BAND NEUTROPHILS % (MANUAL) 1 %; LYMPHOCYTES % (MANUAL) 13 % (19-48); METAMYELOCYTES % (MANUAL) 1 % (0-0); MYELOCYTES % (MANUAL) 1 % (0-0); NEUTROPHILS % (MANUAL) 84 % (40-74); PLATELET ESTIMATE ADEQUATE; PLATELET MORPHOLOGY COMMENT NORMAL; RBC MORPHOLOGY COMMENT NORMAL
[2017-10-07] MEDS ORDERED: FUROSEMIDE INJ 10 MG/ML 2 ML VIAL IV ONE (11:40)
[2017-10-07] MEDS ORDERED: MORPHINE SULFATE 4 MG/ML SYR IV PRN (15:00)
[2017-10-07] MEDS ORDERED: ACETAMINOPHEN 325 MG TAB PO PRN (15:00)
[2017-10-07] MEDS ORDERED: MORPHINE SULFATE 2 MG/ML SYR IV PRN (15:15)
[2017-10-07] MEDS: PANTOPRAZOLE 40 MG 10ML VIAL IV SCH (21:00)
[2017-10-08] VITALS (14 sets, daily range): BP systolic 100–135; BP diastolic 64–90
[2017-10-08] MEDS: VANCOMYCIN 1GM/NS 250 ML 250 ML IV SCH ×2 (00:57→12:21)
[2017-10-08] MEDS: MEROPENEM 1 GM VIAL IV SCH ×3 (05:43→22:19)
[2017-10-08] MEDS: METRONIDAZOLE 500MG/NS 100ML 100 ML IV SCH ×4 (05:43→22:42)
[2017-10-08] MEDS: DEXTROSE 5%/LACTATED RINGERS 1,000 ML IV SCH ×2 (07:30→12:19)
[2017-10-08 10:28] LABS: BASOPHILS # (AUTO) 0.1 (0.0-0.1); BASOPHILS % 0.3 % (0.0-1.0); EOSINOPHILS # (AUTO) 0.2 (0.0-0.4); HEMATOCRIT 26.2 % (34.2-44.1); HEMOGLOBIN 8.5 g/dL (12.0-16.0); LYMPHOCYTES # (AUTO) 2.8 (1.0-3.2); LYMPHOCYTES % 14.1 % (18.0-39.1); MEAN CORPUSCULAR HEMOGLOBIN 29.8 pg (28-32); MEAN CORPUSCULAR HGB CONC 32.4 g/dL (31-35); MEAN CORPUSCULAR VOLUME 91.9 fL (81-99); MONOCYTES # (AUTO) 1.7 (0.2-0.8); MONOCYTES % 8.6 % (4.4-11.3); NEUTROPHILS # (AUTO) 14.2 (2.1-6.9); NEUTROPHILS % 71.3 % (38.7-80.0); PLATELET COUNT 379 x10e3/uL (140-360); RED BLOOD COUNT 2.85 x10e6/uL (3.6-5.1); RED CELL DISTRIBUTION WIDTH 14.6 % (11.7-14.4)
[2017-10-08 10:36] LABS: ANION GAP 8.3 mmol/L (8-16); BLOOD UREA NITROGEN 5 mg/dL (7-26); BUN/CREATININE RATIO 10 (6-25); CARBON DIOXIDE 36 mmol/L (22-29); CHLORIDE 100 mmol/L (98-107); CREATININE, SERUM 0.52 mg/dL (0.57-1.11); EST GLOMERULAR FILTRATION RATE > 60 ML/MIN (60-); GLUCOSE 109 mg/dL (74-118); POTASSIUM 3.3 mmol/L (3.5-5.1); SODIUM 141 mmol/L (136-145)
[2017-10-08] MEDS ORDERED: POTASSIUM CHLORIDE 10 MEQ TABCR PO ONE (11:00)
[2017-10-08] MEDS: ACETAMINOPHEN 325 MG TAB PO PRN ×3 (11:02→20:30)
[2017-10-08 11:59] LABS: LYMPHOCYTES % (MANUAL) 9 % (19-48); METAMYELOCYTES % (MANUAL) 2 % (0-0); MONOCYTES % (MANUAL) 8 % (3.4-9.0); NEUTROPHILS % (MANUAL) 81 % (40-74)
[2017-10-08 12:00] LABS: ANISOCYTOSIS SLIGHT; HYPOCHROMASIA SLIGHT; PLATELET ESTIMATE ADEQUATE; PLATELET MORPHOLOGY COMMENT NORMAL; POIKILOCYTOSIS SLIGHT; RBC MORPHOLOGY COMMENT NORMAL
[2017-10-08] MEDS ORDERED: ACETAMINOPHEN 325 MG TAB PO PRN (14:00)
[2017-10-08] MEDS: PANTOPRAZOLE 40 MG 10ML VIAL IV SCH (22:19)
[2017-10-09] MEDS: VANCOMYCIN 1GM/NS 250 ML 250 ML IV SCH ×2 (00:02→12:50)
[2017-10-09] MEDS: DEXTROSE 5%/LACTATED RINGERS 1,000 ML IV SCH ×2 (04:44→08:26)
[2017-10-09] MEDS: MEROPENEM 1 GM VIAL IV SCH ×3 (04:44→23:02)
[2017-10-09 06:15] LABS: BASOPHILS # (AUTO) 0.1 (0.0-0.1); BASOPHILS % 0.3 % (0.0-1.0); EOSINOPHILS # (AUTO) 0.3 (0.0-0.4); EOSINOPHILS % 1.4 % (0.0-6.0); HEMATOCRIT 26.8 % (34.2-44.1); HEMOGLOBIN 8.9 g/dL (12.0-16.0); LYMPHOCYTES # (AUTO) 2.4 (1.0-3.2); LYMPHOCYTES % 13.3 % (18.0-39.1); MEAN CORPUSCULAR HEMOGLOBIN 29.6 pg (28-32); MEAN CORPUSCULAR HGB CONC 33.2 g/dL (31-35); MONOCYTES # (AUTO) 1.9 (0.2-0.8); MONOCYTES % 10.3 % (4.4-11.3); NEUTROPHILS # (AUTO) 12.5 (2.1-6.9); NEUTROPHILS % 68.8 % (38.7-80.0); PLATELET COUNT 448 x10e3/uL (140-360); RED BLOOD COUNT 3.01 x10e6/uL (3.6-5.1); RED CELL DISTRIBUTION WIDTH 14.6 % (11.7-14.4)
[2017-10-09 06:34] LABS: ANION GAP 9.4 mmol/L (8-16); BLOOD UREA NITROGEN 5 mg/dL (7-26); BUN/CREATININE RATIO 10 (6-25); CALCIUM 7.9 mg/dL (8.4-10.2); CARBON DIOXIDE 31 mmol/L (22-29); CHLORIDE 101 mmol/L (98-107); CREATININE, SERUM 0.49 mg/dL (0.57-1.11); EST GLOMERULAR FILTRATION RATE > 60 ML/MIN (60-); GLUCOSE 98 mg/dL (74-118); POTASSIUM 3.4 mmol/L (3.5-5.1); SODIUM 138 mmol/L (136-145)
[2017-10-09] MEDS: METRONIDAZOLE 500MG/NS 100ML 100 ML IV SCH ×4 (06:34→23:03)
[2017-10-09 07:51] VITALS: BP 123/91
[2017-10-09 09:05] LABS: EOSINOPHILS % (MANUAL) 1 % (0-7); LYMPHOCYTES % (MANUAL) 12 % (19-48); METAMYELOCYTES % (MANUAL) 1 % (0-0); MONOCYTES % (MANUAL) 8 % (3.4-9.0); MYELOCYTES % (MANUAL) 2 % (0-0); NEUTROPHILS % (MANUAL) 76 % (40-74)
[2017-10-09 09:06] LABS: ANISOCYTOSIS SLIGHT; HYPOCHROMASIA SLIGHT; PLATELET ESTIMATE SLIGHTLY INCREASED; PLATELET MORPHOLOGY COMMENT NORMAL; RBC MORPHOLOGY COMMENT NORMAL
[2017-10-09 10:03] VITALS: BP 123/91
[2017-10-09] MEDS: ACETAMINOPHEN 325 MG TAB PO PRN ×2 (10:26→18:25)
[2017-10-09] MEDS ORDERED: POTASSIUM CHLORIDE 20 MEQ TAB CR PO STA ×2 (11:12→11:26)
[2017-10-09 11:36] VITALS: BP 123/69
[2017-10-09 16:02] VITALS: BP 117/75
[2017-10-09 20:00] VITALS: BP 118/58
[2017-10-09 20:05] VITALS: BP 118/58
[2017-10-09] MEDS: PANTOPRAZOLE 40 MG 10ML VIAL IV SCH (20:57)
[2017-10-09] MEDS: HYDROCODONE/APAP 7.5MG-325MG 1 EA TAB PO PRN (20:57)
[2017-10-10] VITALS (8 sets, daily range): BP systolic 104–130; BP diastolic 57–79
[2017-10-10] MEDS: HYDROCODONE/APAP 7.5MG-325MG 1 EA TAB PO PRN ×3 (05:55→22:03)
[2017-10-10] MEDS: METRONIDAZOLE 500MG/NS 100ML 100 ML IV SCH (05:58)
[2017-10-10] MEDS: MEROPENEM 1 GM VIAL IV SCH ×3 (05:59→22:05)
[2017-10-10] MEDS: PANTOPRAZOLE 40 MG 10ML VIAL IV SCH (18:30)
[2017-10-11] VITALS (7 sets, daily range): BP systolic 99–135; BP diastolic 52–74
[2017-10-11] MEDS: HYDROCODONE/APAP 7.5MG-325MG 1 EA TAB PO PRN ×3 (05:28→22:16)
[2017-10-11] MEDS: MEROPENEM 1 GM VIAL IV SCH ×3 (06:00→21:55)
[2017-10-11 07:06] LABS: BASOPHILS # (AUTO) 0.1 (0.0-0.1); BASOPHILS % 0.4 % (0.0-1.0); EOSINOPHILS # (AUTO) 0.6 (0.0-0.4); HEMATOCRIT 29.4 % (34.2-44.1); HEMOGLOBIN 9.7 g/dL (12.0-16.0); LYMPHOCYTES # (AUTO) 2.9 (1.0-3.2); LYMPHOCYTES % 15.4 % (18.0-39.1); MONOCYTES # (AUTO) 2.1 (0.2-0.8); MONOCYTES % 11.1 % (4.4-11.3); NEUTROPHILS # (AUTO) 12.2 (2.1-6.9); NEUTROPHILS % 65.4 % (38.7-80.0); PLATELET COUNT 599 x10e3/uL (140-360); RED BLOOD COUNT 3.23 x10e6/uL (3.6-5.1); RED CELL DISTRIBUTION WIDTH 15.1 % (11.7-14.4)
[2017-10-11 07:31] LABS: ANION GAP 11.5 mmol/L (8-16); BLOOD UREA NITROGEN < 5 mg/dL (7-26); CALCIUM 8.3 mg/dL (8.4-10.2); CARBON DIOXIDE 30 mmol/L (22-29); CHLORIDE 97 mmol/L (98-107); CREATININE, SERUM 0.57 mg/dL (0.57-1.11); EST GLOMERULAR FILTRATION RATE > 60 ML/MIN (60-); GLUCOSE 99 mg/dL (74-118); POTASSIUM 3.5 mmol/L (3.5-5.1); SODIUM 135 mmol/L (136-145)
[2017-10-11 07:37] LABS: BUN/CREATININE RATIO 9 (6-25)
[2017-10-11 10:04] LABS: EOSINOPHILS % (MANUAL) 6 % (0-7); HOWELL-JOLLY BODIES FEW; LYMPHOCYTES % (MANUAL) 12 % (19-48); MONOCYTES % (MANUAL) 10 % (3.4-9.0); NEUTROPHILS % (MANUAL) 71 % (40-74)
[2017-10-11 10:05] LABS: ANISOCYTOSIS SLIGHT; HYPOCHROMASIA SLIGHT; PLATELET ESTIMATE SLIGHTLY INCREASED; PLATELET MORPHOLOGY COMMENT NORMAL; POIKILOCYTOSIS SLIGHT
[2017-10-11] MEDS: PANTOPRAZOLE 40 MG 10ML VIAL IV SCH (17:49)
[2017-10-12] VITALS (8 sets, daily range): BP systolic 92–108; BP diastolic 16–65
[2017-10-12] MEDS: HYDROCODONE/APAP 7.5MG-325MG 1 EA TAB PO PRN (10:13)
[2017-10-12] MEDS ORDERED: MEROPENEM 1GRAM 1 GM in SODIUM CHLORIDE 0.9% 100 ML 100 ML IV SCH (14:00)
--- NOTE | 2017-10-12 16:37 | Progress Note ---
DATE: October 12, 2017 INTERNAL MEDICINE PROGRESS NOTE SUBJECTIVE: This is a 47-year-old female who came here with bowel diverticulitis with perforation, status post surgery. PHYSICAL EXAMINATION VITALS: Blood pressure 94/16, temperature 97.6, heart rate 110 per minute, respiratory rate is 16 per minute. Oxygen saturation 98%. HEART: Regular rhythm. Normal S1, S2 sounds. LUNGS: Clear bilaterally. ABDOMEN: Soft. She has a colostomy and drain tubes. EXTREMITIES: No evidence of cyanosis, edema or trauma. BLOOD WORK: BMP: Sodium 135, potassium 3.5, chloride 97, CO2 30, BUN 5, creatinine 0.57, glucose 99. CBC: White blood count 18.7, hemoglobin 9.7, hematocrit 29.4, platelet count 599,000. AST 15, ALT 8, total bilirubin 0.2, alkaline phosphatase 42. FINAL IMPRESSION 1. Intra-abdominal abscess secondary to diverticulitis with perforation. 2. Acute anemia. 3. Hypokalemia. PLAN OF TREATMENT 1. Continue with meropenem IV q.8 h. 2. Continue with Protonix 40 mg q.24 h. 3. Promethazine q.4 h. as needed. 4. Tylenol 975 mg q.4 h. as needed. 5. [place] 1 tablet q.4 h. as needed. 6. We are going to repeat a CBC tomorrow. 7. Continue current medication regimen. 1. Also, Dr. Pranay Billy, surgeon, is following the case. 2. Potassium is going to be replaced. We are going to recheck potassium and magnesium levels also and CBC. Job#: [id number]
[2017-10-12] MEDS: MEROPENEM 1 GM VIAL IV SCH (20:48)
[2017-10-12] MEDS: PANTOPRAZOLE 40 MG 10ML VIAL IV SCH (20:48)
[2017-10-13] VITALS (9 sets, daily range): BP systolic 96–159; BP diastolic 55–72
[2017-10-13] MEDS: MEROPENEM 1 GM VIAL IV SCH ×3 (06:00→22:00)
[2017-10-13] MEDS: HYDROCODONE/APAP 7.5MG-325MG 1 EA TAB PO PRN ×2 (06:00→15:36)
[2017-10-13 07:27] LABS: BASOPHILS # (AUTO) 0.1 (0.0-0.1); BASOPHILS % 0.5 % (0.0-1.0); EOSINOPHILS # (AUTO) 0.5 (0.0-0.4); EOSINOPHILS % 3.5 % (0.0-6.0); HEMATOCRIT 27.6 % (34.2-44.1); LYMPHOCYTES # (AUTO) 2.8 (1.0-3.2); LYMPHOCYTES % 21.2 % (18.0-39.1); MEAN CORPUSCULAR HEMOGLOBIN 29.5 pg (28-32); MEAN CORPUSCULAR HGB CONC 32.6 g/dL (31-35); MEAN CORPUSCULAR VOLUME 90.5 fL (81-99); MONOCYTES # (AUTO) 1.8 (0.2-0.8); MONOCYTES % 13.7 % (4.4-11.3); NEUTROPHILS # (AUTO) 7.7 (2.1-6.9); PLATELET COUNT 612 x10e3/uL (140-360); RED BLOOD COUNT 3.05 x10e6/uL (3.6-5.1); RED CELL DISTRIBUTION WIDTH 15.7 % (11.7-14.4)
[2017-10-13 10:19] LABS: EOSINOPHILS % (MANUAL) 2 % (0-7); LYMPHOCYTES % (MANUAL) 21 % (19-48); MONOCYTES % (MANUAL) 11 % (3.4-9.0); NEUTROPHILS % (MANUAL) 65 % (40-74)
[2017-10-13 10:20] LABS: PLATELET ESTIMATE MARKEDLY INCREASED; PLATELET MORPHOLOGY COMMENT NORMAL; RBC MORPHOLOGY COMMENT NORMAL
--- NOTE | 2017-10-13 15:35 | Progress Note ---
DATE: October 13, 2017 INTERNAL MEDICINE PROGRESS NOTE SUBJECTIVE: The patient is doing well. No significant complaint. PHYSICAL EXAMINATION VITAL SIGNS: Blood pressure 116/69. Temperature 97.9. Heart rate 99 per minute. Respiratory rate is 20 per minute. Oxygen saturation is 98%. HEART: Regular rhythm. Normal S1, S2 sounds. LUNGS: Clear bilaterally. ABDOMEN: Soft. Minimal tenderness at incisional site. EXTREMITIES: No evidence of cyanosis, edema or trauma. LABS: On the BMP, sodium is 135, potassium 3.5, chloride 97, CO2 30, BUN 5, creatinine 0.57. Glucose 99. On the CBC, white blood count 13.2, hemoglobin 9.0, hematocrit 27.6, platelet count 612,000. AST 15, ALT 8, total bilirubin 0.2, alkaline phosphatase 42. FINAL IMPRESSION 1. Acute diverticulitis with perforation status post surgery with bowel resection. 2. Acute anemia. 3. Leukocytosis. PLAN OF TREATMENT 1. We are going to continue promethazine 25 mg IV q.4 h. as needed. 2. Continue Protonix 40 mg IV once a day. 3. Continue Tylenol 975 mg q.4 h. as needed. 4. Meropenem 1 gram IV piggyback q.8 h. 5. [place] 1 tablet q.4 h. as needed. 6. We are going to recheck CBC and BMP tomorrow. 7. Continue physical and occupational therapy. 8. Patient is doing much better. Job#: [id number]
[2017-10-13] MEDS: PANTOPRAZOLE 40 MG 10ML VIAL IV SCH (20:59)
[2017-10-14] VITALS: BP 92/60
[2017-10-14 04:00] VITALS: BP 97/56
[2017-10-14] MEDS: HYDROCODONE/APAP 7.5MG-325MG 1 EA TAB PO PRN (04:06)
[2017-10-14] MEDS: MEROPENEM 1 GM VIAL IV SCH ×2 (06:14→13:47)
[2017-10-14 06:30] LABS: BASOPHILS # (AUTO) 0.1 (0.0-0.1); BASOPHILS % 0.4 % (0.0-1.0); EOSINOPHILS # (AUTO) 0.4 (0.0-0.4); EOSINOPHILS % 2.9 % (0.0-6.0); HEMATOCRIT 28.6 % (34.2-44.1); HEMOGLOBIN 9.2 g/dL (12.0-16.0); LYMPHOCYTES # (AUTO) 2.5 (1.0-3.2); LYMPHOCYTES % 19.6 % (18.0-39.1); MEAN CORPUSCULAR HEMOGLOBIN 29.7 pg (28-32); MEAN CORPUSCULAR HGB CONC 32.2 g/dL (31-35); MEAN CORPUSCULAR VOLUME 92.3 fL (81-99); MONOCYTES # (AUTO) 1.4 (0.2-0.8); MONOCYTES % 11.1 % (4.4-11.3); NEUTROPHILS # (AUTO) 8.1 (2.1-6.9); PLATELET COUNT 617 x10e3/uL (140-360); RED CELL DISTRIBUTION WIDTH 15.7 % (11.7-14.4)
[2017-10-14 06:51] LABS: ANION GAP 12.3 mmol/L (8-16); BLOOD UREA NITROGEN 8 mg/dL (7-26); BUN/CREATININE RATIO 14 (6-25); CALCIUM 9.2 mg/dL (8.4-10.2); CARBON DIOXIDE 29 mmol/L (22-29); CHLORIDE 100 mmol/L (98-107); CREATININE, SERUM 0.57 mg/dL (0.57-1.11); EST GLOMERULAR FILTRATION RATE > 60 ML/MIN (60-); GLUCOSE 106 mg/dL (74-118); POTASSIUM 4.3 mmol/L (3.5-5.1); SODIUM 137 mmol/L (136-145)
[2017-10-14 08:03] VITALS: BP 98/65
[2017-10-14 10:00] VITALS: BP 98/65
[2017-10-14] MEDS ORDERED: TYLENOL WITH C1 EACH PO (11:32)
[2017-10-14] MEDS ORDERED: LEVAQUIN500 MG PO (11:32)
[2017-10-14] MEDS ORDERED: FLAGYL250 MG PO (11:33)
== END 2017-10-14 14:00 | disposition home or self-care (01) | DRG 854 ==
LOC: ER 23:14 → MED/SURG2 09-26 03:28 → ICU 10-04 19:33 → MED/SURG 10-09 10:46
PROC: 0DTB0ZZ Resection of Ileum, Open Approach (ICD-10-PCS; 2017-10-04)
PROC: 0DNW0ZZ Release Peritoneum, Open Approach (ICD-10-PCS; 2017-10-04)
PROC: 0D1M074 Bypass Descending Colon to Cutaneous with Autologous Tissue Substitute, Open Approach (ICD-10-PCS; 2017-10-04)
PROC: 0UT60ZZ Resection of Left Fallopian Tube, Open Approach (ICD-10-PCS; 2017-10-04)
PROC: 0UT10ZZ Resection of Left Ovary, Open Approach (ICD-10-PCS; 2017-10-04)
PROC: 0W9J0ZX Drainage of Pelvic Cavity, Open Approach, Diagnostic (ICD-10-PCS; 2017-10-04)
PROC: 0DTN0ZZ Resection of Sigmoid Colon, Open Approach (ICD-10-PCS; principal; 2017-10-04 13:00)
DX: A41.9 Sepsis, unspecified organism (principal); K57.20 Diverticulitis of large intestine with perforation and abscess without bleeding; K43.2 Incisional hernia without obstruction or gangrene; D63.8 Anemia in other chronic diseases classified elsewhere; F17.210 Nicotine dependence, cigarettes, uncomplicated; B95.4 Other streptococcus as the cause of diseases classified elsewhere; E87.6 Hypokalemia; N83.292 Other ovarian cyst, left side; N99.4 Postprocedural pelvic peritoneal adhesions
CPT/HCPCS: 36415; 71045; 74018; 74022; 74177; 80048; 80053; 80202; 81001; 82150; 82550; 82553; 82948; 83605; 83690; 84484; 84702; 85025; 87040; 87071; 87075; 87086; 87205; 88304; 88305; 88307; 96361; 96367; 96376; 97139; 99284; J1100; J1885; J1940; J1956; J2001; J2185; J2250; J2270; J2405; J2550; J3370; J3480; J7030; J7120; Q9967

== ENCOUNTER → 2018-04-02 | Outpatient (CLI) | payer OTHER ==
[~2018-04-02] MED LIST: DIATRIZOATE MEGL/DIATRIZOA SOD 30 ML BTL PO ONE; FLAGYL250 MG PO; IOPAMIDOL 370 MG/ML 200 ML INFUS..BTL INJ ONE; LEVAQUIN500 MG PO; SODIUM CHLORIDE 0.9% 50ML 50 ML ONE; TYLENOL WITH C1 EACH PO
--- NOTE | 2018-04-02 13:34 | Diagnostic Imaging Report ---
EXAMINATION: CT of the abdomen and pelvis with contrast. TECHNIQUE: Spiral CT images of the abdomen and pelvis were performed from the lung bases to the lesser trochanters after the intravenous administration of 100 cc of Isovue-370 and the oral administration of Gastrografin. Coronal and sagittal reformatted images were obtained. COMPARISON: 10/01/2017 CLINICAL HISTORY:Abdominal pain, history of colostomy, appendectomy, right oophorectomy DISCUSSION: ABDOMEN/PELVIS: LOWER THORAX:Linear atelectasis in the lingula. Otherwise unremarkable lung bases. HEPATOBILIARY: No focal hepatic lesions. No intra-or extrahepatic biliary ductal dilation. The gallbladder is normal. SPLEEN: No splenomegaly. PANCREAS: No focal masses or ductal dilatation. ADRENALS: No adrenal nodules. KIDNEYS/URETERS: No hydronephrosis, stones, or solid mass lesions. PELVIC ORGANS/BLADDER: The urinary bladder is incompletely distended. The uterus is anteverted and appears normal. Adjacent to the right side of the uterus there is a multiloculated, septated fluid collection measuring 4.4 x 3.2 cm (series 2 image 68). This area remains contiguous with phlegmonous change along the rectosigmoid stump. No adnexal mass. PERITONEUM/RETROPERITONEUM: Trace free fluid in the pelvis, average internal attenuation 15-20 Hounsfield units. No pneumoperitoneum. LYMPH NODES: Mildly prominent left pelvic sidewall lymph nodes are not enlarged by CT criteria. No retroperitoneal or mesenteric lymphadenopathy. VESSELS: Abdominal aorta, major branch vessels, and iliac arterial systems are patent without aneurysmal dilatation. Portal vein, splenic vein, and central superior mesenteric vein are patent. GI TRACT: Left mid abdominal diverting colostomy. Persistent wall thickening and adjacent inflammatory change along the rectosigmoid stump, which is again notable for multiple diverticula. Fluid collections along the left side of the proximal stump seen on the comparison examination are no longer visualized. No small bowel dilatation to suggest obstruction. Small hernia defect in the site of the previous colostomy in the left lower quadrant again contains a single herniated loop of small bowel without inflammatory change. Quantity of herniated bowel has also decreased compared to the prior examination. BONES AND SOFT TISSUE: No focal soft tissue abnormalities. No osseous destructive lesions. Mild degenerative disc changes and facet arthropathy of the lumbar spine. IMPRESSION: Interval left mid abdominal diverting colostomy with persistent inflammatory changes of the rectosigmoid stump, including a multiseptated abscess/phlegmon in the right pelvis measuring 4.4 cm in maximum dimension and the largest individual pocket measuring 2 cm. Associated reactive free pelvic fluid. Overall, pelvic phlegmonous changes and inflammation have improved relative to 10/01/2017. 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 Signed by: Dr. Kishor Travis M.D. on 04/02/2018 1:31 PM
== END ==
LOC: CT 10:39
PROVIDERS: ATTEND Surgery
DX: R10.9 Unspecified abdominal pain (principal)
CPT/HCPCS: 74177; Q9663; Q9967

== ENCOUNTER → 2018-06-24 | Outpatient (CLI) | payer OTHER ==
[~2018-06-24] MED LIST changes: +DIATRIZOATE MEGL/DIATRIZOA SOD 120 ML BTL PO ONE; -DIATRIZOATE MEGL/DIATRIZOA SOD 30 ML BTL PO ONE; -IOPAMIDOL 370 MG/ML 200 ML INFUS..BTL INJ ONE; -SODIUM CHLORIDE 0.9% 50ML 50 ML ONE
--- NOTE | 2018-06-24 10:49 | Diagnostic Imaging Report ---
Examination: Single contrast Gastrografin enema Clinical indication: Diverticulitis status post resection and diverting colostomy Comparison examination: CT abdomen and pelvis with contrast 04/02/2018 Total fluoroscopy time: 3.2 minutes Air Kerma: 68.5 mGy Technique: A rectal tube was placed and retention balloon inflated with air. A small amount of Gastrografin was then instilled in a retrograde fashion with opacification of the rectal stump. A 12 [place] Yusuf catheter was then advanced into the prolapsed left upper quadrant: September. Due to prolapse and inability to obtain an adequate seal, Gastrografin infused through the ostomy opacified only the distalmost aspect of the diverted colon. At the conclusion the retention balloon was deflated and the rectal tube and Yusuf catheter removed. Findings: Order Picker/Assembler abdominal radiograph shows a nonobstructive bowel gas pattern. Radiopaque surgical material projects over the left hemipelvis. Regional skeletal structures intact. No organomegaly. The residual rectal stump is notable for luminal narrowing with multiple residual diverticula along the proximal rectum, and presumed wall thickening as seen on comparison CT abdomen. No spillage of contrast outside the rectal stump was noted. The diverting colostomy in the left upper quadrant was noted to be prolapsed by approximately 4 cm. The distal aspect of the diverted descending colon is unremarkable, without evidence of diverticulitis. Impression: Luminal narrowing of the residual proximal rectal stump with associated diverticula, likely attributed to chronic inflammatory changes as discussed on CT abdomen and pelvis 04/02/2018. No contrast leakage from the rectal stump. Prolapsed left upper quadrant ostomy, with unremarkable distal mucosa. Signed by: Dr. Kishor Travis M.D. on 06/24/2018 10:45 AM
== END ==
LOC: DX 09:01
PROVIDERS: ATTEND Surgery
DX: K57.92 Diverticulitis of intestine, part unspecified, without perforation or abscess without bleeding (principal)
CPT/HCPCS: 74280; Q9963

== ENCOUNTER 2018-07-07 06:11 | Inpatient (IN) | payer OTHER ==
[2018-07-04 10:57] LABS: BASOPHILS # (AUTO) 0.1 (0.0-0.1); BASOPHILS % 0.6 % (0.0-1.0); EOSINOPHILS # (AUTO) 0.3 (0.0-0.4); EOSINOPHILS % 2.1 % (0.0-6.0); HEMATOCRIT 48.4 % (34.2-44.1); LYMPHOCYTES % 20.6 % (18.0-39.1); MEAN CORPUSCULAR HEMOGLOBIN 28.9 pg (28-32); MEAN CORPUSCULAR VOLUME 93.3 fL (81-99); MONOCYTES % 6.8 % (4.4-11.3); NEUTROPHILS # (AUTO) 10.1 (2.1-6.9); NEUTROPHILS % 69.3 % (38.7-80.0); PLATELET COUNT 256 x10e3/uL (140-360); RED BLOOD COUNT 5.19 x10e6/uL (3.6-5.1)
[2018-07-04 11:16] LABS: ANION GAP 14.9 mmol/L (8-16); BLOOD UREA NITROGEN 10 mg/dL (7-26); BUN/CREATININE RATIO 12 (6-25); CALCIUM 9.8 mg/dL (8.4-10.2); CARBON DIOXIDE 23 mmol/L (22-29); CHLORIDE 105 mmol/L (98-107); CREATININE, SERUM 0.81 mg/dL (0.57-1.11); EST GLOMERULAR FILTRATION RATE > 60 ML/MIN (60-); GLUCOSE 100 mg/dL (74-118); POTASSIUM 3.9 mmol/L (3.5-5.1); SODIUM 139 mmol/L (136-145)
--- NOTE | 2018-07-04 11:23 | Diagnostic Imaging Report ---
EXAMINATION: PA and lateral views of the chest. COMPARISON: None CLINICAL HISTORY: Preadmission, colon surgery DISCUSSION: Lines/tubes: None. Lungs: The lungs are well inflated and clear. No pneumonia or pulmonary edema. Pleura: No pleural effusion or pneumothorax. Heart and mediastinum: The cardiomediastinal silhouette is normal. Bones and soft tissues: No acute bony abnormalities. IMPRESSION: No acute cardiopulmonary abnormalities. Signed by: Dr. Justin Smiley M.D. on 07/04/2018 11:20 AM
[~2018-07-07] VITALS: Ht 152.4 cm; Wt 73.5 kg
[2018-07-07] VITALS (9 sets, daily range): BP systolic 63–145; BP diastolic 48–91
[~2018-07-07 06:11] MED LIST changes: -DIATRIZOATE MEGL/DIATRIZOA SOD 120 ML BTL PO ONE; +FLONASE
--- NOTE | 2018-07-07 07:10 | NUR ---
SPIRITUAL CARE - Pre-Surgery Assessment: Pt in bed. Pt's son at bedside. Pt reported supportive attention from family and friends. Intervention: I provided pastoral presence, hospitality, and sympathetic listening. I acquainted pt with availability of machine burrer while hospitalized. Outcome: Pt expressed appreciation for visit. No need for follow up indicated at this time. [facility] Department O: [phone] Pager: [phone] ([phone] calling from)
[2018-07-07] MEDS ORDERED: SUGAMMADEX SODIUM 200 MG/2 ML VIAL IV ONE (07:26)
[2018-07-07] MEDS ORDERED: MINERAL OIL STERILE 10ML VIAL ONE (08:33)
[2018-07-07] MEDS: DEXTROSE 5%/LACTATED RINGERS 1,000 ML IV SCH ×2 (13:00→23:00)
[2018-07-07] MEDS: SODIUM CHLORIDE 0.9% 250ML IRRIG IR SCH ×3 (13:00→21:00)
[2018-07-07] MEDS ORDERED: ACETAMINOPHEN 1000 MG/100 ML IV PRN (13:00)
[2018-07-07] MEDS ORDERED: HYDROMORPHONE 0.2MG/ML-SOD CHL 30ML PCA SYRINGE IV PRN (13:00)
[2018-07-07] MEDS ORDERED: HYDROMORPHONE 2MG/ML 2 MG/ML ML ONE (13:13)
[2018-07-07] MEDS ORDERED: HYDROMORPHONE 0.2MG/ML-SOD CHL 30ML PCA SYRINGE IV ONE (13:47)
[2018-07-07] MEDS: PANTOPRAZOLE 40 MG 10ML VIAL IV SCH (15:26)
[2018-07-07] MEDS: CEFOXITIN 1GM/ D5W 50ML 50 ML IV SCH (17:29)
[2018-07-07] MEDS: NALOXONE HCL INJ 0.4 MG/ML AMP IV PRN ×2 (17:34→17:38)
[2018-07-07] MEDS: KETOROLAC TROMETHAMINE 30 MG/ML VIAL IV PRN (17:51)
[2018-07-07] MEDS ORDERED: KETAMINE HCL INJ 50 MG/ML 10 ML VIAL ONE (18:41)
[2018-07-07] MEDS ORDERED: MIDAZOLAM HCL 2 MG/2 ML VIAL ONE (18:41)
[2018-07-07] MEDS ORDERED: FENTANYL CITRATE/PF 100MCG/2 ML INJ ONE (18:41)
--- NOTE | 2018-07-07 19:00 | NUR ---
Received patient stable in bed, alert and oriented, complaining of pain at a scale of 9, on Dilaudid WALLPAPER CLEANER pump, reassured , reinforced the use of the push button for bolus medication
[2018-07-07] MEDS ORDERED: LIDOCAINE HCL 2% JELLY 5 ML TUBE ONE (19:23)
[2018-07-07] MEDS ORDERED: DEXAMETHASONE SOD PHOS INJ 4 MG/ML VIAL ONE (19:23)
[2018-07-07] MEDS ORDERED: ROCURONIUM BROMIDE 10 MG/ML 5ML VIAL ONE (19:23)
[2018-07-07] MEDS ORDERED: EPHEDRINE SULFATE INJ 50 MG/10 ML SYR ONE (19:23)
[2018-07-07] MEDS ORDERED: ONDANSETRON HCL INJ 2MG/ML 2ML 2 MG/ML VIAL ONE (19:23)
[2018-07-07] MEDS ORDERED: PROPOFOL IV EMULSION 10 MG/ML 20 ML VIAL ONE (19:23)
[2018-07-07] MEDS ORDERED: SEVOFLURANE INHAL SOLN 250 ML PEN BTL ONE (19:23)
[2018-07-07] MEDS ORDERED: ACETAMINOPHEN 1000 MG/100 ML IV ONE (19:23)
[2018-07-07] MEDS ORDERED: LIDOCAINE HCL 2% LOCAL INJ 5 ML SDV VIAL INJ ONE (19:23)
--- NOTE | 2018-07-07 20:30 | Operative Report ---
DATE OF PROCEDURE: 07/07/2018 SURGEON: Pranay Billy MD PREOPERATIVE DIAGNOSIS: End sigmoid colostomy and Helen pouch, status post perforated diverticulitis with peritonitis and intra-abdominal abscesses. POSTOPERATIVE DIAGNOSIS: End sigmoid colostomy and Heeln pouch, status post perforated diverticulitis with peritonitis and intra-abdominal abscesses. OPERATION PERFORMED: Exploratory laparotomy, low anterior colon resection with mobilization of the splenic flexure, extensive lysis of adhesions and takedown of colostomy. PRICE ANALYST: Venkatesh Billy M.D. ANESTHESIA: General endotracheal. COMPLICATIONS: None. ESTIMATED BLOOD LOSS: 100 mL. DESCRIPTION OF PROCEDURE: With the patient lying in bed in the supine position with the legs up in stirrups, the abdomen and perineum were prepped with Betadine solution and draped in the usual manner. The left mid abdominal colostomy site was then isolated with towels. An elliptical incision was made around the colostomy. The colostomy was then mobilized all the way down to the fascia. The access of the colostomy was then stapled shut with a LEANDRO 75 stapler. The colon was then from the fascia and reduced back to the intra-abdominal cavity. The colostomy site was then isolated and gloves and instruments were changed. A midline incision was then made and carried down through the subcutaneous tissue and through the midline fascia. The peritoneum was opened and the abdomen was entered. Upon entering the abdominal cavity, as expected, the patient was plastered with adhesions inside, the small bowel was stuck to the anterior abdominal wall, which had to be slowly and carefully . The lysis of adhesions took over an hour. We nonetheless managed slowly and carefully, identified the small bowel from the anterior abdominal wall and then went ahead and identified the terminal ileum and slowly and carefully started taking down all of the matted adhesions all the way back up to the ligament of Treitz. There was a loop of small bowel at the level of the ileum that was totally plastered up against the stump of the sigmoid staple line and this was nonetheless and we were then able to get access to the abdomen. The splenic flexure was then brought down with the Enseal device all the way down to the mid transverse colon so that the transverse colon would reach easily down into the pelvis. The colon was then divided at the level of the splenic flexure with the 75 LEANDRO. The mesentery was ligated with the Enseal device and the specimen was sent for pathological examination. This gave us a loop of transverse colon that would easily reach down into the pelvis. After this was done, we then went ahead and found the rectal stump and the lower sigmoid colon, which was totally plastered up against the posterior wall of the uterus. This was slowly and carefully . No hysterectomy was necessary to be done. We managed to get all of that hard matted down adhesions from the previous pelvic abscess and the colon was then totally from the uterus and we managed to get access to the rectosigmoid junction. The mesentery was then opened up on both sides and the colon was then slowly and carefully dissected all the way down to the upper rectum at which point the rectum was divided with the contour stapler and sent for pathological examination. Hemostasis was ascertained. The whole area was irrigated and there was no bleeding anywhere. The transverse colon was then brought down. The staple line was removed and a 29 EEA anvil was placed in the proximal colon and sutured in place with a purse-string suture of 2-0 Prolene. After this was done, we went from below and dilated the anus all the way up to a 29 dilator. The 29 EEA was introduced transanally and brought out through the center of the staple line in the rectal stump and the anastomosis was then performed by uniting the anvil and the stapler together. The stapler was closed and fired and two perfect donuts were obtained and gloves and instruments were then changed. The anastomosis was reinforced with interrupted sutures of 3-0 silk. The abdomen was then copiously irrigated and perfect hemostasis was ascertained. The colostomy site was then closed from inside with a running suture of #1 Vicryl. A 10 flat Galindo-Lund drain was then left in the retrorectal space and brought out through the right lower quadrant puncture wound and the abdomen was then closed in layers. The peritoneum was closed with a running suture of #1 Vicryl. The midline fascia was closed with a running suture of #1 PDS and the skin was closed with clips. The colostomy site was then closed. The fascia was closed with [id number] of #1 Vicryl. The subcutaneous tissue was drained with a quarter-inch Jairo drain and the subcutaneous tissue was approximated with 2-0 chromic and the skin was closed with interrupted vertical mattress sutures of 2-0 silk and tracee. Dressings were applied. The sponge, lap, and needle count was correct. The patient tolerated the procedure well and returned to the recovery room in stable condition. MD DOM Delatorre/BABS /[id number]
--- NOTE | 2018-07-07 23:00 | NUR ---
Patient falling in and out of sleep but remains stable, reports great improvement, pain reduced to a 5 from 9. repositioned
[2018-07-08] VITALS (22 sets, daily range): BP systolic 95–134; BP diastolic 17–85
[2018-07-08] MEDS: CEFOXITIN 1GM/ D5W 50ML 50 ML IV SCH
[2018-07-08] MEDS: SODIUM CHLORIDE 0.9% 250ML IRRIG IR SCH ×6 (01:00→21:00)
--- NOTE | 2018-07-08 01:00 | NUR ---
Patient asleep, no complaints raised. Pain well managed
--- NOTE | 2018-07-08 04:00 | NUR ---
Patient given a full bath, settled calmly in bed
[2018-07-08] MEDS: KETOROLAC TROMETHAMINE 30 MG/ML VIAL IV PRN ×3 (04:13→16:39)
[2018-07-08 05:15] LABS: BASOPHILS % 0.2 % (0.0-1.0); HEMATOCRIT 40.6 % (34.2-44.1); HEMOGLOBIN 12.6 g/dL (12.0-16.0); LYMPHOCYTES # (AUTO) 1.9 (1.0-3.2); LYMPHOCYTES % 8.2 % (18.0-39.1); MEAN CORPUSCULAR HEMOGLOBIN 29.2 pg (28-32); MONOCYTES % 8.6 % (4.4-11.3); NEUTROPHILS # (AUTO) 19.5 (2.1-6.9); NEUTROPHILS % 82.3 % (38.7-80.0); PLATELET COUNT 251 x10e3/uL (140-360); RED BLOOD COUNT 4.32 x10e6/uL (3.6-5.1); RED CELL DISTRIBUTION WIDTH 14.9 % (11.7-14.4)
[2018-07-08 05:47] LABS: BLOOD UREA NITROGEN 11 mg/dL (7-26); BUN/CREATININE RATIO 13 (6-25); CALCIUM 8.7 mg/dL (8.4-10.2); CARBON DIOXIDE 30 mmol/L (22-29); CHLORIDE 105 mmol/L (98-107); CREATININE, SERUM 0.88 mg/dL (0.57-1.11); EST GLOMERULAR FILTRATION RATE > 60 ML/MIN (60-); GLUCOSE 146 mg/dL (74-118); SODIUM 140 mmol/L (136-145)
[2018-07-08 06:50] LABS: ANISOCYTOSIS SLIGHT; HYPOCHROMASIA SLIGHT; LYMPHOCYTES % (MANUAL) 7 % (19-48); MONOCYTES % (MANUAL) 7 % (3.4-9.0); NEUTROPHILS % (MANUAL) 86 % (40-74); RBC MORPHOLOGY COMMENT NORMAL
[2018-07-08 06:51] LABS: PLATELET ESTIMATE ADEQUATE; PLATELET MORPHOLOGY COMMENT NORMAL
--- NOTE | 2018-07-08 07:10 | NUR ---
Patient handed over stable, remains on a BATCH TESTER pump , pain score of 3
[2018-07-08] MEDS: DEXTROSE 5%/LACTATED RINGERS 1,000 ML IV SCH ×2 (09:39→19:15)
[2018-07-08] MEDS ORDERED: INFLUENZA VIRUS VAC SPLIT INJ 0.5 ML SYR IM SCH (09:44)
[2018-07-08] MEDS: PANTOPRAZOLE 40 MG 10ML VIAL IV SCH (16:38)
[2018-07-08] MEDS ORDERED: SODIUM CHLORIDE 0.9% 50ML 50 ML ONE (16:49)
[2018-07-08] MEDS: PROMETHAZINE HCL (IM) 25 MG/ML VIAL IV PRN (17:00)
--- NOTE | 2018-07-08 19:00 | NUR ---
Report received. Assumed care. Assessment done. See interventions. IV D5LR @ 100ml/hr & Dilaudid AIRPLANE ENGINEER for pain control. O2 per NC @ 2L. Family at bedside. Questions answered.
[2018-07-08] MEDS ORDERED: SODIUM CHLORIDE 0.9% 1000ML 1,000 ML ONE (19:55)
--- NOTE | 2018-07-08 20:10 | NUR ---
Dr. Gal Billy here. No new orders.
[2018-07-09] VITALS (14 sets, daily range): BP systolic 96–131; BP diastolic 62–83
[2018-07-09] MEDS: SODIUM CHLORIDE 0.9% 250ML IRRIG IR SCH ×5 (01:00→17:35)
[2018-07-09] MEDS: PROMETHAZINE HCL (IM) 25 MG/ML VIAL IV PRN (03:00)
[2018-07-09] MEDS ORDERED: SODIUM CHLORIDE 0.9% 50ML 50 ML ONE (03:00)
--- NOTE | 2018-07-09 03:00 | NUR ---
Coughing thick clear secretions. c/o nausea. Phenergan IVPB given. Medicated with Toradol for breakthrough pain.
[2018-07-09] MEDS: KETOROLAC TROMETHAMINE 30 MG/ML VIAL IV PRN ×2 (03:11→09:16)
[2018-07-09 04:54] LABS: BASOPHILS % 0.2 % (0.0-1.0); EOSINOPHILS # (AUTO) 0.1 (0.0-0.4); EOSINOPHILS % 0.4 % (0.0-6.0); HEMATOCRIT 33.5 % (34.2-44.1); HEMOGLOBIN 10.6 g/dL (12.0-16.0); LYMPHOCYTES # (AUTO) 1.3 (1.0-3.2); MEAN CORPUSCULAR HEMOGLOBIN 29.7 pg (28-32); MEAN CORPUSCULAR HGB CONC 31.6 g/dL (31-35); MEAN CORPUSCULAR VOLUME 93.8 fL (81-99); MONOCYTES # (AUTO) 1.3 (0.2-0.8); MONOCYTES % 9.8 % (4.4-11.3); NEUTROPHILS # (AUTO) 10.1 (2.1-6.9); NEUTROPHILS % 79.1 % (38.7-80.0); PLATELET COUNT 187 x10e3/uL (140-360); RED BLOOD COUNT 3.57 x10e6/uL (3.6-5.1)
[2018-07-09 05:12] LABS: ANION GAP 6.9 mmol/L (8-16); BLOOD UREA NITROGEN 8 mg/dL (7-26); BUN/CREATININE RATIO 11 (6-25); CALCIUM 8.4 mg/dL (8.4-10.2); CARBON DIOXIDE 31 mmol/L (22-29); CHLORIDE 106 mmol/L (98-107); CREATININE, SERUM 0.71 mg/dL (0.57-1.11); EST GLOMERULAR FILTRATION RATE > 60 ML/MIN (60-); GLUCOSE 135 mg/dL (74-118); POTASSIUM 3.9 mmol/L (3.5-5.1); SODIUM 140 mmol/L (136-145)
[2018-07-09] MEDS: DEXTROSE 5%/LACTATED RINGERS 1,000 ML IV SCH ×2 (06:29→14:21)
[2018-07-09] MEDS ORDERED: BISACODYL 10 MG SUPP PR ONE (09:00)
[2018-07-09] MEDS ORDERED: HYDROMORPHONE 0.2MG/ML-SOD CHL 30ML PCA SYRINGE IV PRN (10:15)
--- NOTE | 2018-07-09 10:59 | NUR ---
PATIENT SAT UP N CHAIR X 1HR AND TOLERATED WELL. HAIR WASHED, SPONGE BATH AND LINEN CHANGE. PATIENT DID SELF ORAL CARE. JONNIE CARE DONE.
--- NOTE | 2018-07-09 13:00 | NUR ---
PATIENT AMBULATED TO TOILET FOR FIRST BM POST OP
[2018-07-09] MEDS: PANTOPRAZOLE 40 MG 10ML VIAL IV SCH (14:21)
--- NOTE | 2018-07-09 17:41 | NUR ---
discontinued coleman catheter. patient due to void
--- NOTE | 2018-07-09 18:23 | NUR ---
Patient transferred to unit from ICU. Patient is AAOx3. Patient is NPO. Post op day 2 exploratory lap with a colostomy reversal. Dressing clean and dry. Lung pereira clear to auscultation. Bowel sounds hypoactive. Patient has an NG tube at this time. NPO at this time. Patient has had 2 BM's today. IV fluids and STAFF ELECTRICAL ENGINEER pump infusing
[2018-07-09] MEDS ORDERED: HYDROMORPHONE 1MG/1ML INJ IV PRN (20:15)
--- NOTE | 2018-07-09 21:00 | NUR ---
Pt voided.encouraged to use incentive spirometer.
--- NOTE | 2018-07-09 22:16 | NUR ---
IN THE UNIT TO SEE THE PT.NG TUBE REMOVED.PT TOLERATED WELL.MEDICAL CSR DILAUDID DISCONTINUED.CLEAR LIQUID STARTED.
[2018-07-09] MEDS: HYDROCODONE/APAP 7.5MG-325MG 1 EA TAB PO PRN (23:56)
[2018-07-10] VITALS (8 sets, daily range): BP systolic 112–123; BP diastolic 56–70
[2018-07-10] MEDS: ONDANSETRON HCL INJ 2MG/ML 2ML 2 MG/ML VIAL IV PRN ×2 (01:27→09:56)
[2018-07-10] MEDS: HYDROMORPHONE 2MG/ML 2 MG/ML ML IV PRN ×2 (01:27→09:56)
[2018-07-10] MEDS: DEXTROSE 5%/LACTATED RINGERS 1,000 ML IV SCH ×2 (01:37→11:51)
--- NOTE | 2018-07-10 02:18 | NUR ---
NEW IV CHANGED TO RF ARM #20.PATENT.HAD BOWEL MOVEMENT.SMALL AMOUNT OF LOOSE BM.NO RESP.DISTRESS.BED ALARM ON.TOLERATE THE CLEAR LIQUID DIET. BED LOCKED AND IN LOWEST POSITION.PHONE AND CALL LIGHT WITHIN REACH.INSTRUCTED TO CALL FOR ASSISTANCE NEEDED.
[2018-07-10 05:46] LABS: BASOPHILS % 0.3 % (0.0-1.0); EOSINOPHILS # (AUTO) 0.3 (0.0-0.4); EOSINOPHILS % 2.4 % (0.0-6.0); HEMOGLOBIN 10.4 g/dL (12.0-16.0); LYMPHOCYTES # (AUTO) 2.3 (1.0-3.2); MEAN CORPUSCULAR HGB CONC 32.5 g/dL (31-35); MEAN CORPUSCULAR VOLUME 92.2 fL (81-99); MONOCYTES # (AUTO) 1.3 (0.2-0.8); MONOCYTES % 9.7 % (4.4-11.3); NEUTROPHILS # (AUTO) 9.4 (2.1-6.9); NEUTROPHILS % 70.2 % (38.7-80.0); PLATELET COUNT 184 x10e3/uL (140-360); RED BLOOD COUNT 3.47 x10e6/uL (3.6-5.1); RED CELL DISTRIBUTION WIDTH 14.7 % (11.7-14.4)
[2018-07-10 06:03] LABS: ANION GAP 8.4 mmol/L (8-16); BLOOD UREA NITROGEN 8 mg/dL (7-26); BUN/CREATININE RATIO 13 (6-25); CALCIUM 8.6 mg/dL (8.4-10.2); CARBON DIOXIDE 29 mmol/L (22-29); CHLORIDE 104 mmol/L (98-107); CREATININE, SERUM 0.63 mg/dL (0.57-1.11); EST GLOMERULAR FILTRATION RATE > 60 ML/MIN (60-); GLUCOSE 111 mg/dL (74-118); POTASSIUM 3.4 mmol/L (3.5-5.1); SODIUM 138 mmol/L (136-145)
--- NOTE | 2018-07-10 06:54 | NUR ---
REPORT GIVEN TO THE ONCOMING RN.WALKING ROUNDS DONE.STABLE CONDITION.
--- NOTE | 2018-07-10 07:17 | NUR ---
Rcvd patient in report this am. Patient is asleep in bed at this time. No s/s of distress noted
--- NOTE | 2018-07-10 11:06 | NUR ---
Patient is AAox3. Patient lung pereira clear to auscultation. Bowel sounds present x4 but hypoactive. Patient has had a BM. Tolerating clear liquid diet. NO c/o nausea. Patient ambulates with assist. RIght forearm IV in place with IV fluids infusing
[2018-07-10] MEDS: KETOROLAC TROMETHAMINE 30 MG/ML VIAL IV PRN (12:17)
[2018-07-10] MEDS: PANTOPRAZOLE 40 MG 10ML VIAL IV SCH (12:17)
[2018-07-10] MEDS: HYDROCODONE/APAP 7.5MG-325MG 1 EA TAB PO PRN (20:56)
[2018-07-11] VITALS (8 sets, daily range): BP systolic 107–136; BP diastolic 56–78
[2018-07-11] MEDS: DEXTROSE 5%/LACTATED RINGERS 1,000 ML IV SCH ×2 (00:14→21:55)
[2018-07-11] MEDS: ONDANSETRON HCL INJ 2MG/ML 2ML 2 MG/ML VIAL IV PRN (00:15)
[2018-07-11] MEDS: HYDROMORPHONE 2MG/ML 2 MG/ML ML IV PRN (00:15)
--- NOTE | 2018-07-11 00:20 | NUR ---
PT TOLERATE THE DIET.PAIN VOICED @10/20.PAIN MEDICATION GIVEN.VOIDED.NO RESP.DISTRESS.BED LOCKED AND IN LOWEST POSITION.PHONE AND CALL LIGHT WITHIN REACH.INSTRUCTED TO CALL FOR ASISTANCE NEEDED.
[2018-07-11] MEDS: HYDROCODONE/APAP 7.5MG-325MG 1 EA TAB PO PRN ×4 (05:38→23:30)
--- NOTE | 2018-07-11 06:50 | NUR ---
Report given to the oncoming rn.walking rounds done.stable condition.
[2018-07-11] MEDS: PANTOPRAZOLE 40 MG 10ML VIAL IV SCH (15:39)
--- NOTE | 2018-07-11 19:19 | NUR ---
WALKING ROUNDS PERFORMED, RECEIVED PT LAYING SEMI FOWLERS IN BED, AAOX3, RR EVEN AND NON-LABORED ON RA. NO S/SX OF DISTRESS NOTED. LEFT PT LAYING SEMI FOWLERS IN BED, BED IN LOW LOCKED POSITION, SIDE RAILS UPX2, CALL LIGHT AND PHONE WITHIN REACH.
[2018-07-11] MEDS ORDERED: PROMETHAZINE 12.5MG/ NACL 0.9% 50 ML IV PRN (20:30)
[2018-07-12] VITALS: BP 124/69
[2018-07-12 04:00] VITALS: BP 117/74
[2018-07-12 07:46] VITALS: BP 133/67
[2018-07-12] MEDS: HYDROCODONE/APAP 7.5MG-325MG 1 EA TAB PO PRN (08:55)
[2018-07-12 09:02] VITALS: BP 133/67
[2018-07-12 11:52] VITALS: BP 125/64
--- NOTE | 2018-07-12 12:15 | NUR ---
MD Elodia DOOLEY INTO SEE PT, DISCUSSED POC AND POSSIBLE DISCHARGE
[2018-07-12] MEDS ORDERED: LEVAQUIN500 MG PO (14:08)
[2018-07-12] MEDS ORDERED: TYLENOL WITH C1 EACH PO (14:08)
--- NOTE | 2018-07-12 14:49 | NUR ---
PT DISCHARGED PER MD ORDER, VERBALIZED UNDERSTANDING INSTRUCTIONS, NO CHANGE IN CONDITION
--- NOTE | 2018-09-12 05:04 | Discharge Summary ---
ADMITTING DIAGNOSES: Diverticulitis, status post colostomy with a Helen pouch. DISCHARGE DIAGNOSES: Diverticulitis, status post colostomy with a Helen pouch. OPERATIONS PERFORMED: Exploratory laparotomy, low anterior colon resection with extensive lysis of adhesions, and closure of colostomy. COMPLICATIONS: None. HOSPITAL COURSE: This 48-year-old female was admitted to the hospital with a history having had a previous perforated diverticulitis for which she had undergone a colon resection with end colostomy and Helen's pouch. She was now admitted to the hospital for the purpose of closure of the colostomy. Physical examination at time of admission was essentially negative except for left lower quadrant abdominal colostomy. Laboratory data was within normal limits. The patient went to surgery on the day of admission, where she underwent an uneventful exploratory laparotomy with low anterior colon resection, extensive lysis of adhesion, and closure over of her colostomy. Postoperatively, she did very well. She remained afebrile. Her vital signs were stable. Her NG tube was removed on the 3rd postoperative day and she was started on a clear liquid diet, which was then slowly and carefully advanced all the way up to a regular diet and finally on 07/12/2018, with the patient being afebrile, her vital signs being stable, her wounds healing nicely, eating a regular diet, and having normal bowel movements, she was discharged home to be followed at the office at a later date. MD DOM Delatorre/BABS /[id number]
== END 2018-07-12 14:53 | disposition home or self-care (01) | DRG 329 ==
LOC: OR 06:11 → PACU V 13:05 → ICU 14:31 → MED/SURG 07-09 18:19
PROVIDERS: ADMIT Surgery; ATTEND Surgery
PROC: 0DNW0ZZ Release Peritoneum, Open Approach (ICD-10-PCS; 2018-07-07)
PROC: 0DTG0ZZ Resection of Left Large Intestine, Open Approach (ICD-10-PCS; principal; 2018-07-07 08:33)
PROC: 0DSL0ZZ Reposition Transverse Colon, Open Approach (ICD-10-PCS; 2018-07-07 08:33)
PROC: 0JNC0ZZ Release Pelvic Region Subcutaneous Tissue and Fascia, Open Approach (ICD-10-PCS; 2018-07-07 08:33)
DX: K57.20 Diverticulitis of large intestine with perforation and abscess without bleeding (principal); K65.1 Peritoneal abscess; N73.5 Female pelvic peritonitis, unspecified; K66.0 Peritoneal adhesions (postprocedural) (postinfection); Z93.3 Colostomy status
CPT/HCPCS: 36415; 71046; 80048; 81025; 85025; 86850; 86900; 88307; 93005; J1100; J1885; J2001; J2250; J2310; J2405; J2550; J7030

== ENCOUNTER 2020-05-26 16:23 | Observation (INO) | payer OTHER ==
[~2020-05-26] VITALS: Ht 162.6 cm; Wt 74.8 kg
[2020-05-26] MEDS ORDERED: SODIUM CHLORIDE 0.9% 1000ML 1,000 ML IV STA ×2 (17:17)
[2020-05-26] MEDS ORDERED: ONDANSETRON HCL INJ 2MG/ML 2ML 2 MG/ML VIAL IV STA ×2 (17:17→18:37)
[2020-05-26] MEDS ORDERED: PIPER-TAZ 3.375 GM 50 ML IV STA (17:17)
[2020-05-26] MEDS ORDERED: MORPHINE SULFATE INJ 4 MG/ML INJ 1ML IV PRN ×2 (17:30→20:45)
[2020-05-26] MEDS ORDERED: ACETAMINOPHEN 325 MG TAB PO ONE (17:30)
[2020-05-26 17:38] LABS: BASOPHILS # (AUTO) 0.1 (0.0-0.1); BASOPHILS % 0.3 % (0.0-1.0); EOSINOPHILS % 0.1 % (0.0-6.0); HEMATOCRIT 46.1 % (34.2-44.1); HEMOGLOBIN 15.2 g/dL (12.0-16.0); LYMPHOCYTES # (AUTO) 1.1 (1.0-3.2); LYMPHOCYTES % 4.3 % (18.0-39.1); MEAN CORPUSCULAR HEMOGLOBIN 30.3 pg (28-32); MEAN CORPUSCULAR VOLUME 91.8 fL (81-99); MONOCYTES # (AUTO) 1.3 (0.2-0.8); MONOCYTES % 5.2 % (4.4-11.3); NEUTROPHILS # (AUTO) 21.9 (2.1-6.9); NEUTROPHILS % 89.1 % (38.7-80.0); PLATELET COUNT 234 x10e3/uL (140-360); RED BLOOD COUNT 5.02 x10e6/uL (3.6-5.1); RED CELL DISTRIBUTION WIDTH 13.9 % (11.7-14.4)
[2020-05-26 17:56] LABS: ALANINE AMINOTRANSFERASE 19 IU/L (0-55); ALBUMIN 4.1 g/dL (3.5-5.0); ALBUMIN/GLOBULIN RATIO 1.2 (0.8-2.0); ALKALINE PHOSPHATASE 85 IU/L (40-150); BLOOD UREA NITROGEN 11 mg/dL (7-26); BUN/CREATININE RATIO 13 (6-25); CALCIUM 9.5 mg/dL (8.4-10.2); CARBON DIOXIDE 27 mmol/L (22-29); CHLORIDE 100 mmol/L (98-107); CREATINE KINASE 64 IU/L (29-168); CREATININE, SERUM 0.86 mg/dL (0.57-1.11); EST GLOMERULAR FILTRATION RATE > 60 ML/MIN (60-); GLUCOSE 114 mg/dL (74-118); SODIUM 137 mmol/L (136-145)
[2020-05-26] MEDS ORDERED: DIATRIZOATE MEGL/DIATRIZOA SOD 30 ML BTL PO ONE (18:31)
[2020-05-26] MEDS ORDERED: MORPHINE SULFATE INJ 4 MG/ML INJ 1ML IV STA (18:37)
[2020-05-26] MEDS ORDERED: ONDANSETRON HCL INJ 2MG/ML 2ML 2 MG/ML VIAL IV PRN (20:45)
[2020-05-26] MEDS ORDERED: SODIUM CHLORIDE 0.9% 50ML 50 ML ONE (21:02)
[2020-05-26] MEDS ORDERED: IOPAMIDOL 370 MG/ML 200 ML INFUS..BTL INJ ONE (21:02)
[2020-05-26 21:27] LABS: COLOR,URINE YELLOW (YELLOW); KETONES,URINE NEGATIVE (NEGATIVE); LEUKOCYTE ESTERASE ,URINE NEGATIVE (NEGATIVE); NITRITE,URINE NEGATIVE (NEGATIVE); PROTEIN,URINE DIPSTICK NEGATIVE (NEGATIVE); URINE UROBILINOGEN 0.2 mg/dL (0.2 - 1)
[2020-05-26 21:28] LABS: CLARITY,URINE CLEAR (CLEAR)
[2020-05-26 21:39] LABS: EPITHELIAL CELLS,URINE RARE /LPF
[2020-05-26] MEDS: SODIUM CHLORIDE 0.9% 1000ML 1,000 ML IV SCH (22:23)
[2020-05-27] VITALS (8 sets, daily range): BP systolic 93–125; BP diastolic 58–77
[2020-05-27 02:56] LABS: CREATINE KINASE MB 0.7 ng/mL (0-5.0)
[2020-05-27] MEDS: SODIUM CHLORIDE 0.9% 1000ML 1,000 ML IV SCH (05:22)
[2020-05-27 05:29] LABS: BASOPHILS % 0.3 % (0.0-1.0); EOSINOPHILS # (AUTO) 0.1 (0.0-0.4); EOSINOPHILS % 0.9 % (0.0-6.0); HEMOGLOBIN 12.9 g/dL (12.0-16.0); LYMPHOCYTES # (AUTO) 1.8 (1.0-3.2); LYMPHOCYTES % 15.4 % (18.0-39.1); MEAN CORPUSCULAR HEMOGLOBIN 30.4 pg (28-32); MEAN CORPUSCULAR HGB CONC 32.3 g/dL (31-35); MEAN CORPUSCULAR VOLUME 94.3 fL (81-99); MONOCYTES # (AUTO) 0.8 (0.2-0.8); MONOCYTES % 7.3 % (4.4-11.3); NEUTROPHILS # (AUTO) 8.7 (2.1-6.9); NEUTROPHILS % 75.5 % (38.7-80.0); PLATELET COUNT 172 x10e3/uL (140-360); RED BLOOD COUNT 4.24 x10e6/uL (3.6-5.1)
[2020-05-27 05:54] LABS: ALANINE AMINOTRANSFERASE 8 IU/L (0-55); ALBUMIN/GLOBULIN RATIO 1.2 (0.8-2.0); ALKALINE PHOSPHATASE 57 IU/L (40-150); ANION GAP 8.6 mmol/L (8-16); BLOOD UREA NITROGEN 8 mg/dL (7-26); BUN/CREATININE RATIO 11 (6-25); CALCIUM 7.9 mg/dL (8.4-10.2); CARBON DIOXIDE 25 mmol/L (22-29); CHLORIDE 109 mmol/L (98-107); CREATININE, SERUM 0.72 mg/dL (0.57-1.11); EST GLOMERULAR FILTRATION RATE > 60 ML/MIN (60-); GLUCOSE 89 mg/dL (74-118); POTASSIUM 3.6 mmol/L (3.5-5.1); SODIUM 139 mmol/L (136-145)
[2020-05-27] MEDS: PIPER-TAZ 3.375 GM 50 ML IV SCH ×3 (06:07→12:30)
[2020-05-27 10:56] LABS: CREATINE KINASE MB 0.8 ng/mL (0-5.0)
[2020-05-27] MEDS ORDERED: ACETAMINOPHEN/CODEINE 300MG - 30MG TAB PO PRN (16:15)
[2020-05-28] MEDS ORDERED: LEVOFLOXACIN 500 MG TAB PO SCH (09:00)
== END 2020-05-27 17:17 | disposition home or self-care (01) ==
LOC: ER 16:30 → EEVIPCON 17:18 → ERHOLD 20:40 → ER 23:03 → ERHOLD 23:44 → ER 23:44 → ERHOLD 05-27 00:04 → UNDOADMOB 05-27 00:04 → MED/SURG2 05-27 00:08 → ERHOLD 05-27 00:08 → UNDODISOB 05-27 17:17
PROVIDERS: ADMIT Internal Medicine; ATTEND Internal Medicine
DX: R10.32 Left lower quadrant pain (principal); K43.2 Incisional hernia without obstruction or gangrene; E66.9 Obesity, unspecified; K63.89 Other specified diseases of intestine; Z90.49 Acquired absence of other specified parts of digestive tract; R11.10 Vomiting, unspecified; Z68.28 Body mass index [BMI] 28.0-28.9, adult; Z20.822 Contact with and (suspected) exposure to COVID-19
CPT/HCPCS: 36415 ×2; 74177; 80053 ×2; 81001; 82550 ×2; 82553 ×2; 83605; 83690; 84484 ×2; 85025 ×2; 87040; 99284; G0378 ×2; J2270; J2405; J2543 ×2; J7030 ×2; Q9967; U0002

== ENCOUNTER 2020-12-18 11:29 | Inpatient (IN) | payer OTHER ==
[~2020-12-18] VITALS: Ht 152.4 cm; Wt 80.9 kg
[2020-12-18] MEDS ORDERED: SODIUM CHLORIDE 0.9% 1000ML 1,000 ML IV STA ×2 (12:11)
[2020-12-18] MEDS ORDERED: PIPERACILLIN/TAZOBACTAM 3.375 GM in SODIUM CHLORIDE 0.9% 50ML 50 ML IV STA (12:11)
[2020-12-18 12:31] LABS: BASOPHILS % 0.3 % (0.0-1.0); EOSINOPHILS % 0.1 % (0.0-6.0); HEMATOCRIT 40.4 % (34.2-44.1); HEMOGLOBIN 13.5 g/dL (12.0-16.0); LYMPHOCYTES # (AUTO) 2.3 (1.0-3.2); LYMPHOCYTES % 15.7 % (18.0-39.1); MEAN CORPUSCULAR HEMOGLOBIN 29.5 pg (28-32); MEAN CORPUSCULAR HGB CONC 33.4 g/dL (31-35); MEAN CORPUSCULAR VOLUME 88.4 fL (81-99); MONOCYTES # (AUTO) 0.8 (0.2-0.8); MONOCYTES % 5.4 % (4.4-11.3); NEUTROPHILS # (AUTO) 11.2 (2.1-6.9); PLATELET COUNT 66 x10e3/uL (140-360); RED BLOOD COUNT 4.57 x10e6/uL (3.6-5.1); RED CELL DISTRIBUTION WIDTH 14.5 % (11.7-14.4)
[2020-12-18] MEDS ORDERED: PIPERACILLIN/TAZOBACTAM 3.375 GM VIAL ONE (12:31)
[2020-12-18] MEDS ORDERED: DIATRIZOATE MEGL/DIATRIZOA SOD 30 ML BTL PO ONE (12:36)
[2020-12-18 12:42] LABS: INR 1.01; PARTIAL THROMBOPLASTIN TIME 33.3 seconds (23.8-35.5); PROTHROMBIN TIME 13.5 seconds (11.9-14.5)
[2020-12-18 12:46] LABS: ALBUMIN 2.8 g/dL (3.5-5.0); ALBUMIN/GLOBULIN RATIO 0.7 (0.8-2.0); CALCIUM 8.1 mg/dL (8.4-10.2); CREATININE, SERUM 0.69 mg/dL (0.57-1.11); MAGNESIUM 1.4 MG/DL (1.3-2.1)
[2020-12-18 12:53] LABS: CREATINE KINASE MB 1.3 ng/mL (0-5.0)
[2020-12-18] MEDS ORDERED: IOPAMIDOL 370 MG/ML 200 ML INFUS..BTL INJ ONE (13:10)
[2020-12-18] MEDS ORDERED: SODIUM CHLORIDE 0.9% 50ML 50 ML ONE (13:10)
[2020-12-18] MEDS ORDERED: ACETAMINOPHEN 1000 MG/100 ML IV NR (13:45)
[2020-12-18 16:39] LABS: CLARITY,URINE SL CLOUDY (CLEAR); COLOR,URINE YELLOW (YELLOW); LEUKOCYTE ESTERASE ,URINE NEGATIVE (NEGATIVE); NITRITE,URINE NEGATIVE (NEGATIVE); PROTEIN,URINE DIPSTICK NEGATIVE (NEGATIVE)
[2020-12-18 16:40] LABS: KETONES,URINE NEGATIVE (NEGATIVE); URINE UROBILINOGEN 1 mg/dL (0.2 - 1)
[2020-12-18 16:48] LABS: BACTERIA,URINE RARE /HPF
[2020-12-18] MEDS: PIPERACILLIN/TAZOBACTAM 3.375 GM in SODIUM CHLORIDE 0.9% 50ML 50 ML IV SCH (18:05)
[2020-12-18] MEDS: SODIUM CHLORIDE 0.9% 1000ML 1,000 ML IV SCH (18:21)
[2020-12-19] MEDS: PIPERACILLIN/TAZOBACTAM 3.375 GM in SODIUM CHLORIDE 0.9% 50ML 50 ML IV SCH ×4 (01:10→16:32)
[2020-12-19] MEDS: SODIUM CHLORIDE 0.9% 1000ML 1,000 ML IV SCH ×3 (01:54→18:48)
[2020-12-19 07:09] LABS: BASOPHILS # (AUTO) 0.1 (0.0-0.1); BASOPHILS % 0.4 % (0.0-1.0); EOSINOPHILS % 0.2 % (0.0-6.0); HEMATOCRIT 34.7 % (34.2-44.1); HEMOGLOBIN 11.5 g/dL (12.0-16.0); LYMPHOCYTES # (AUTO) 2.8 (1.0-3.2); LYMPHOCYTES % 17.3 % (18.0-39.1); MEAN CORPUSCULAR HEMOGLOBIN 29.6 pg (28-32); MEAN CORPUSCULAR HGB CONC 33.1 g/dL (31-35); MEAN CORPUSCULAR VOLUME 89.2 fL (81-99); MONOCYTES % 6.2 % (4.4-11.3); NEUTROPHILS # (AUTO) 11.8 (2.1-6.9); NEUTROPHILS % 72.6 % (38.7-80.0); PLATELET COUNT 59 x10e3/uL (140-360); RED BLOOD COUNT 3.89 x10e6/uL (3.6-5.1); RED CELL DISTRIBUTION WIDTH 14.9 % (11.7-14.4)
[2020-12-19 07:39] LABS: ALBUMIN 2.3 g/dL (3.5-5.0); ALBUMIN/GLOBULIN RATIO 0.7 (0.8-2.0); ANION GAP 14.4 mmol/L (8-16); CALCIUM 7.1 mg/dL (8.4-10.2); CREATININE, SERUM 0.68 mg/dL (0.57-1.11); POTASSIUM 3.4 mmol/L (3.5-5.1)
[2020-12-19 07:48] LABS: CREATINE KINASE MB 1.4 ng/mL (0-5.0)
[2020-12-19] MEDS ORDERED: SYNTHROID50 MCG PO (08:38)
[2020-12-19] MEDS ORDERED: ASPIRIN81 MG PO (08:39)
[2020-12-19] MEDS: ONDANSETRON HCL INJ 2MG/ML 2ML 2 MG/ML VIAL IV PRN ×2 (11:47→20:26)
[2020-12-19 14:15] LABS: CREATINE KINASE MB 1.5 ng/mL (0-5.0)
[2020-12-19 14:22] VITALS: BP 121/67
[2020-12-19] MEDS: ACETAMINOPHEN 325 MG TAB PO PRN (18:49)
[2020-12-19] MEDS ORDERED: ACETAMINOPHEN 325 MG TAB ONE (18:54)
[2020-12-19] MEDS ORDERED: POTASSIUM CHLORIDE 20 MEQ TAB CR PO SCH (19:45)
[2020-12-19 20:00] VITALS: BP 105/69
[2020-12-19] MEDS: MORPHINE SULFATE INJ 4 MG/ML INJ 1ML IV PRN (20:26)
[2020-12-19 21:00] VITALS: BP 105/69
[2020-12-19] MEDS: METRONIDAZOLE 500MG/NS 100ML 100 ML IV SCH (21:02)
[2020-12-20] VITALS (8 sets, daily range): BP systolic 103–125; BP diastolic 58–82
[2020-12-20] MEDS: PIPERACILLIN/TAZOBACTAM 3.375 GM in SODIUM CHLORIDE 0.9% 50ML 50 ML IV SCH ×4 (00:38→16:31)
[2020-12-20] MEDS: SODIUM CHLORIDE 0.9% 1000ML 1,000 ML IV SCH ×3 (01:58→23:21)
[2020-12-20 04:55] LABS: BASOPHILS # (AUTO) 0.1 (0.0-0.1); BASOPHILS % 0.5 % (0.0-1.0); EOSINOPHILS # (AUTO) 0.1 (0.0-0.4); EOSINOPHILS % 0.5 % (0.0-6.0); HEMATOCRIT 35.2 % (34.2-44.1); HEMOGLOBIN 11.6 g/dL (12.0-16.0); LYMPHOCYTES % 18.2 % (18.0-39.1); MEAN CORPUSCULAR HEMOGLOBIN 29.4 pg (28-32); MEAN CORPUSCULAR VOLUME 89.1 fL (81-99); MONOCYTES # (AUTO) 1.5 (0.2-0.8); MONOCYTES % 6.9 % (4.4-11.3); NEUTROPHILS # (AUTO) 15.4 (2.1-6.9); PLATELET COUNT 61 x10e3/uL (140-360); RED BLOOD COUNT 3.95 x10e6/uL (3.6-5.1); RED CELL DISTRIBUTION WIDTH 15.3 % (11.7-14.4)
[2020-12-20 05:17] LABS: ANION GAP 15.3 mmol/L (8-16); CALCIUM 7.7 mg/dL (8.4-10.2); CREATININE, SERUM 0.7 mg/dL (0.57-1.11); MAGNESIUM 1.7 MG/DL (1.3-2.1); POTASSIUM 3.3 mmol/L (3.5-5.1)
[2020-12-20] MEDS: METRONIDAZOLE 500MG/NS 100ML 100 ML IV SCH ×3 (05:24→22:30)
[2020-12-20 05:47] LABS: LYMPHOCYTES % (MANUAL) 12 % (19-48); MONOCYTES % (MANUAL) 8 % (3.4-9.0); NEUTROPHILS % (MANUAL) 80 % (40-74)
[2020-12-20 05:48] LABS: ANISOCYTOSIS N; PLATELET ESTIMATE MODERATELY DECREASED; PLATELET MORPHOLOGY COMMENT NORMAL; RBC MORPHOLOGY COMMENT NORMAL
[2020-12-20] MEDS: LEVOTHYROXINE SODIUM 50 MCG TAB PO SCH (05:48)
[2020-12-20 06:02] LABS: ALBUMIN 2.4 g/dL (3.5-5.0); BILIRUBIN,DIRECT 0.7 mg/dL (0.0-0.5)
[2020-12-20 06:20] LABS: CREATINE KINASE MB 1.9 ng/mL (0-5.0)
[2020-12-20] MEDS: ONDANSETRON HCL INJ 2MG/ML 2ML 2 MG/ML VIAL IV PRN (06:42)
[2020-12-20] MEDS: ACETAMINOPHEN 325 MG TAB PO PRN ×2 (06:42→20:38)
[2020-12-20] MEDS: PANTOPRAZOLE SOD 40 MG TABEC PO SCH (09:05)
[2020-12-20] MEDS ORDERED: CALCIUM GLUCONATE 10% INJ 9.3 MEQ in SODIUM CHLORIDE 0.9% 100 ML 100 ML IV ONE (18:45)
[2020-12-20] MEDS ORDERED: POTASSIUM CHLORIDE 20 MEQ TAB CR PO NR (19:00)
[2020-12-21] VITALS (8 sets, daily range): BP systolic 96–120; BP diastolic 63–86
[2020-12-21] MEDS: SODIUM CHLORIDE 0.9% 1000ML 1,000 ML IV SCH ×2 (01:45→11:54)
[2020-12-21] MEDS: ONDANSETRON HCL INJ 2MG/ML 2ML 2 MG/ML VIAL IV PRN (02:59)
[2020-12-21 04:54] LABS: BASOPHILS # (AUTO) 0.1 (0.0-0.1); BASOPHILS % 0.4 % (0.0-1.0); EOSINOPHILS # (AUTO) 0.2 (0.0-0.4); EOSINOPHILS % 1.3 % (0.0-6.0); HEMATOCRIT 30.2 % (34.2-44.1); HEMOGLOBIN 9.9 g/dL (12.0-16.0); LYMPHOCYTES # (AUTO) 3.4 (1.0-3.2); LYMPHOCYTES % 21.6 % (18.0-39.1); MEAN CORPUSCULAR HEMOGLOBIN 29.2 pg (28-32); MEAN CORPUSCULAR HGB CONC 32.8 g/dL (31-35); MEAN CORPUSCULAR VOLUME 89.1 fL (81-99); MONOCYTES # (AUTO) 1.6 (0.2-0.8); MONOCYTES % 9.9 % (4.4-11.3); NEUTROPHILS # (AUTO) 9.5 (2.1-6.9); NEUTROPHILS % 59.8 % (38.7-80.0); PLATELET COUNT 68 x10e3/uL (140-360); RED BLOOD COUNT 3.39 x10e6/uL (3.6-5.1); RED CELL DISTRIBUTION WIDTH 15.7 % (11.7-14.4)
[2020-12-21] MEDS: PIPERACILLIN/TAZOBACTAM 3.375 GM in SODIUM CHLORIDE 0.9% 50ML 50 ML IV SCH ×6 (05:23→23:10)
[2020-12-21] MEDS: METRONIDAZOLE 500MG/NS 100ML 100 ML IV SCH ×3 (05:58→21:59)
[2020-12-21] MEDS: LEVOTHYROXINE SODIUM 50 MCG TAB PO SCH (06:01)
[2020-12-21 06:33] LABS: ALBUMIN 2.1 g/dL (3.5-5.0); ALBUMIN/GLOBULIN RATIO 0.7 (0.8-2.0); ANION GAP 11.9 mmol/L (8-16); CALCIUM 7.5 mg/dL (8.4-10.2); CREATININE, SERUM 0.6 mg/dL (0.57-1.11)
[2020-12-21 06:44] LABS: POTASSIUM 2.9 mmol/L (3.5-5.1)
[2020-12-21] MEDS ORDERED: POTASSIUM CHLORIDE 20MEQ/100ML 200 ML IV ONE (07:00)
[2020-12-21 07:26] LABS: EOSINOPHILS % (MANUAL) 3 % (0-7); LYMPHOCYTES % (MANUAL) 13 % (19-48); METAMYELOCYTES % (MANUAL) 2 % (0-0); MONOCYTES % (MANUAL) 15 % (3.4-9.0); MYELOCYTES % (MANUAL) 3 % (0-0); NEUTROPHILS % (MANUAL) 64 % (40-74)
[2020-12-21 07:28] LABS: PLATELET ESTIMATE MODERATELY DECREASED; PLATELET MORPHOLOGY COMMENT NORMAL; RBC MORPHOLOGY COMMENT NORMAL
[2020-12-21] MEDS: PANTOPRAZOLE SOD 40 MG TABEC PO SCH (07:40)
[2020-12-21] MEDS ORDERED: POTASSIUM CHLORIDE 20 MEQ TAB CR PO ONE ×2 (12:05→16:29)
[2020-12-22] VITALS: BP 113/78
[2020-12-22] MEDS: ONDANSETRON HCL INJ 2MG/ML 2ML 2 MG/ML VIAL IV PRN (00:11)
[2020-12-22] MEDS: MORPHINE SULFATE INJ 4 MG/ML INJ 1ML IV PRN (00:11)
[2020-12-22 02:45] LABS: % IRON SATURATION 68 % (15-50); IRON 96 ug/dL (50-170); TOTAL IRON BINDING CAPACITY 141 ug/dL (261-478); TRANSFERRIN 101 mg/dL (180-382)
[2020-12-22 04:00] VITALS: BP 118/72
[2020-12-22 04:56] LABS: BASOPHILS # (AUTO) 0.1 (0.0-0.1); BASOPHILS % 0.6 % (0.0-1.0); EOSINOPHILS # (AUTO) 0.3 (0.0-0.4); HEMATOCRIT 30.2 % (34.2-44.1); HEMOGLOBIN 9.8 g/dL (12.0-16.0); LYMPHOCYTES # (AUTO) 4.4 (1.0-3.2); LYMPHOCYTES % 32.7 % (18.0-39.1); MEAN CORPUSCULAR HEMOGLOBIN 29.4 pg (28-32); MEAN CORPUSCULAR HGB CONC 32.5 g/dL (31-35); MEAN CORPUSCULAR VOLUME 90.7 fL (81-99); MONOCYTES # (AUTO) 1.3 (0.2-0.8); MONOCYTES % 9.5 % (4.4-11.3); NEUTROPHILS # (AUTO) 6.3 (2.1-6.9); NEUTROPHILS % 46.7 % (38.7-80.0); PLATELET COUNT 81 x10e3/uL (140-360); RED BLOOD COUNT 3.33 x10e6/uL (3.6-5.1); RED CELL DISTRIBUTION WIDTH 15.9 % (11.7-14.4)
[2020-12-22 05:23] LABS: ANION GAP 12.3 mmol/L (8-16); CALCIUM 7.3 mg/dL (8.4-10.2); CREATININE, SERUM 0.63 mg/dL (0.57-1.11); POTASSIUM 3.3 mmol/L (3.5-5.1)
[2020-12-22 05:48] LABS: ALBUMIN 2.1 g/dL (3.5-5.0); BILIRUBIN,DIRECT 0.5 mg/dL (0.0-0.5)
[2020-12-22] MEDS: METRONIDAZOLE 500MG/NS 100ML 100 ML IV SCH ×2 (06:00→15:05)
[2020-12-22] MEDS: PIPERACILLIN/TAZOBACTAM 3.375 GM in SODIUM CHLORIDE 0.9% 50ML 50 ML IV SCH ×2 (06:22→11:25)
[2020-12-22] MEDS: LEVOTHYROXINE SODIUM 50 MCG TAB PO SCH (06:22)
[2020-12-22 08:05] VITALS: BP 123/86
[2020-12-22] MEDS ORDERED: CYANOCOBALAMIN INJ 1,000 MCG/ML VIAL IM SCH (09:00)
[2020-12-22 09:12] VITALS: BP 123/86
[2020-12-22] MEDS: DICYCLOMINE HCL 20 MG TAB PO SCH ×2 (09:18→11:25)
[2020-12-22] MEDS: PANTOPRAZOLE SOD 40 MG TABEC PO SCH (09:20)
[2020-12-22] MEDS ORDERED: CEFUROXIME250 MG PO (11:12)
[2020-12-22] MEDS ORDERED: PANTOPRAZOLE SO40 MG PO (11:12)
[2020-12-22] MEDS ORDERED: METRONIDAZOLE500 MG PO (11:12)
[2020-12-22] MEDS ORDERED: POTASSIUM CHLORIDE 20 MEQ TAB CR PO SCH (11:15)
[2020-12-22] MEDS ORDERED: CALCIUM GLUCONATE 10% INJ 9.3 MEQ in SODIUM CHLORIDE 0.9% 100 ML 100 ML IV ONE (11:30)
[2020-12-22 12:11] VITALS: BP 111/75
== END 2020-12-22 16:15 | disposition home or self-care (01) | DRG 872 ==
LOC: ER 12:15 → ERHOLD 17:46 → MED/SURG2 12-19 15:06
PROVIDERS: ADMIT Internal Medicine; ATTEND Internal Medicine
DX: A41.9 Sepsis, unspecified organism (principal); D62 Acute posthemorrhagic anemia; K92.2 Gastrointestinal hemorrhage, unspecified; K80.10 Calculus of gallbladder with chronic cholecystitis without obstruction; D69.3 Immune thrombocytopenic purpura; B17.9 Acute viral hepatitis, unspecified; K52.9 Noninfective gastroenteritis and colitis, unspecified; E03.9 Hypothyroidism, unspecified; D69.6 Thrombocytopenia, unspecified; R94.5 Abnormal results of liver function studies; E87.6 Hypokalemia; Z20.822 Contact with and (suspected) exposure to COVID-19
CPT/HCPCS: 36415; 71045; 74177; 76705; 78227; 80048; 80053; 80076; 81001; 82150; 82270; 82550; 82553; 82607; 82728; 82746; 83540; 83605; 83690; 83735; 84466; 84484; 85025; 85045; 85610; 85730; 87040; 87086; 93005; 99284; A9537; J0610; J2270; J2405; J2543; J3420; J3480; J7030; Q9967; U0002